=== PATIENT | female | born 1945 | race Caucasian/White ===

== ENCOUNTER 2021-06-17 13:10 | Outpatient (REF) | payer MEDICARE, OTHER, SELFPAY ==
[2021-06-17 14:04] LABS: Hematocrit 44.5 % (37-47); Hemoglobin 14.9 g/dl (12.0-16.0); Mean Corpuscular HGB Conc 33.5 g/dl (31.0-35.0); Mean Corpuscular Volume 92.7 fL (80-98); Mean Platelet Volume 9.8 fL (9.4-12.3); Platelet Count 365 X10*3/uL (160-400); Red Cell Distribution Width 13.3 % (11.0-16.0); White Blood Count 7.6 X10*3/uL (4.8-10.8)
[2021-06-17 14:37] LABS: Alanine Aminotransferase 13 U/L (0-31); Albumin Level 4.5 g/dL (3.5-5.0); Alkaline Phosphatase 93 U/L (39-117); Anion Gap 14 (12-20); Aspartate Amino Transferase 27 U/L (5-31); Bilirubin Total 0.7 mg/dL (0.0-1.0); Blood Urea Nitrogen 12 mg/dL (9-16); Calcium 10.3 mg/dL (8.4-10.2); Carbon Dioxide 28 mmol/L (22-29); Chloride 101 mmol/L (96-108); Cholesterol 194 mg/dL; Estimated Glomerular Filt Rate > 60; Glucose Fasting 91 mg/dL (60-99); HDL Cholesterol 85 mg/dL; LDL Cholesterol Calculated 97 mg/dl; Potassium 5.3 mmol/L (3.3-5.1); Sodium 138 mmol/L (135-145); Total Protein 7.7 g/dL (6.5-8.0); Triglycerides 63 mg/dL
[2021-06-17 14:56] LABS: TSH reflex Free T4 1.54 uIU/mL (0.32-4.0)
[2021-06-17 15:15] LABS: Folate 15.6 ng/mL (> or = 4.0); Vitamin B12 519 pg/mL (200-900)
== END 2021-06-17 13:11 | disposition home or self-care (01) ==
LOC: HO.HMGCLDS 13:10
PROVIDERS: PCP Internal Medicine; Visit Provider Internal Medicine
DX: J42 Unspecified chronic bronchitis (principal); I26.99 Other pulmonary embolism without acute cor pulmonale; E78.2 Mixed hyperlipidemia
CPT/HCPCS: 36415; 80053; 80061; 82306; 82607; 82746; 84443; 85027

== ENCOUNTER 2022-07-01 10:30 | Outpatient (REF) | payer MEDICARE, OTHER, SELFPAY ==
[2022-07-01 11:27] LABS: MANUAL DIFF FLAG NO
[2022-07-01 11:49] LABS: Basophils Absolute Auto 0.1 X10*3/uL (0.0-0.2); Basophils Percent Auto 0.9 % (0-2); Eosinophils Absolute Auto 0.8 X10*3/uL (0.0-0.4); Eosinophils Percent Auto 9.2 % (0-4); Hematocrit 42.5 % (37.0-47.0); Hemoglobin 14.3 g/dl (12.0-16.0); Imm Gran Abs Auto 0.03 X10*3/uL (0.00-0.03); Imm Gran Pct Auto 0.4 % (0.0-0.4); Lymphocytes Absolute Auto 1.9 X10*3/uL (1.2-4.9); Lymphocytes Percent Auto 22.1 % (20-40); Mean Corpuscular HGB Conc 33.6 g/dl (31.0-35.0); Mean Corpuscular Hemoglobin 31.7 pg (27.0-33.0); Mean Corpuscular Volume 94.2 fL (80.0-98.0); Mean Platelet Volume 10.2 fL (9.4-12.3); Monocytes Absolute Auto 0.8 X10*3/uL (0.1-1.2); Monocytes Percent Auto 9.6 % (2-11); Neutrophils Absolute Auto 4.9 x10*3/uL (2.0-8.3); Neutrophils Percent Auto 57.8 % (45-73); Platelet Count 359 X10*3/uL (160-400); Red Blood Count 4.51 X10*6/uL (4.20-5.50); Red Cell Distribution Width 12.9 % (11.0-16.0); White Blood Count 8.5 X10*3/uL (4.8-10.8)
[2022-07-01 13:01] LABS: Alanine Aminotransferase 15 U/L (0-31); Albumin Level 4.3 g/dL (3.5-5.0); Alkaline Phosphatase 112 U/L (39-117); Anion Gap 17 (12-20); Aspartate Amino Transferase 24 U/L (5-31); Bilirubin Total 0.6 mg/dL (0.0-1.0); Blood Urea Nitrogen 10 mg/dL (9-16); Carbon Dioxide 26 mmol/L (22-29); Chloride 97 mmol/L (96-108); Cholesterol 198 mg/dL; Estimated Glomerular Filt Rate > 60; Glucose Fasting 89 mg/dL (60-99); HDL Cholesterol 77 mg/dL; LDL Cholesterol Calculated 101 mg/dl; Potassium 4.9 mmol/L (3.3-5.1); Sodium 135 mmol/L (135-145); Total Protein 7.8 g/dL (6.5-8.0); Triglycerides 100 mg/dL
== END 2022-07-01 10:31 | disposition home or self-care (01) ==
LOC: HO.HMGCLDS 10:30
PROVIDERS: PCP Internal Medicine; Visit Provider Internal Medicine
DX: E78.2 Mixed hyperlipidemia (principal); I10 Essential (primary) hypertension
CPT/HCPCS: 36415; 80053; 80061; 85025

== ENCOUNTER 2022-12-19 10:46 | Outpatient (REF) | payer MEDICARE, OTHER, SELFPAY ==
[2022-12-19 14:05] LABS: MANUAL DIFF FLAG NO
[2022-12-19 14:29] LABS: Basophils Absolute Auto 0.1 X10*3/uL (0.0-0.2); Basophils Percent Auto 0.7 % (0-2); Eosinophils Absolute Auto 0.4 X10*3/uL (0.0-0.4); Eosinophils Percent Auto 4.5 % (0-4); Hematocrit 44.5 % (37.0-47.0); Hemoglobin 14.8 g/dl (12.0-16.0); Imm Gran Abs Auto 0.02 X10*3/uL (0.00-0.03); Imm Gran Pct Auto 0.2 % (0.0-0.4); Lymphocytes Absolute Auto 2.1 X10*3/uL (1.2-4.9); Lymphocytes Percent Auto 25.5 % (20-40); Mean Corpuscular HGB Conc 33.3 g/dl (31.0-35.0); Mean Corpuscular Hemoglobin 31.4 pg (27.0-33.0); Mean Corpuscular Volume 94.5 fL (80.0-98.0); Mean Platelet Volume 10.5 fL (9.4-12.3); Monocytes Percent Auto 12.7 % (2-11); Neutrophils Absolute Auto 4.6 x10*3/uL (2.0-8.3); Neutrophils Percent Auto 56.4 % (45-73); Platelet Count 343 X10*3/uL (160-400); Red Blood Count 4.71 X10*6/uL (4.20-5.50); Red Cell Distribution Width 13.9 % (11.0-16.0); White Blood Count 8.2 X10*3/uL (4.8-10.8)
[2022-12-19 14:50] LABS: Alanine Aminotransferase 15 U/L (0-31); Albumin Level 4.2 g/dL (3.5-5.0); Alkaline Phosphatase 105 U/L (39-117); Anion Gap 13 (12-20); Aspartate Amino Transferase 25 U/L (5-31); Blood Urea Nitrogen 10 mg/dL (9-16); Calcium 9.8 mg/dL (8.4-10.2); Carbon Dioxide 27 mmol/L (22-29); Chloride 99 mmol/L (96-108); Cholesterol 201 mg/dL; Estimated Glomerular Filt Rate > 60; Glucose Fasting 107 mg/dL (60-99); HDL Cholesterol 81 mg/dL; LDL Cholesterol Calculated 107 mg/dl; Sodium 134 mmol/L (135-145); Total Protein 7.4 g/dL (6.5-8.0); Triglycerides 67 mg/dL
[2022-12-19 14:56] LABS: TSH reflex Free T4 2.09 uIU/mL (0.32-4.0); Vitamin D 25-OH Total 32.9 ng/mL (>30)
== END 2022-12-19 10:47 | disposition home or self-care (01) ==
LOC: HO.HMGCLDS 10:46
PROVIDERS: PCP Internal Medicine; Visit Provider Internal Medicine
DX: Z00.00 Encounter for general adult medical examination without abnormal findings (principal); E55.9 Vitamin D deficiency, unspecified; E78.2 Mixed hyperlipidemia; I10 Essential (primary) hypertension
CPT/HCPCS: 36415; 80053; 80061; 82306; 84443; 85025

== ENCOUNTER 2023-01-20 10:19 | Outpatient (REF) | payer MEDICARE, OTHER, SELFPAY ==
[2023-01-20 12:15] LABS: Anion Gap 14 (12-20); Blood Urea Nitrogen 9 mg/dL (9-16); Calcium 10.5 mg/dL (8.4-10.2); Carbon Dioxide 29 mmol/L (22-29); Chloride 100 mmol/L (96-108); Estimated Glomerular Filt Rate > 60; Glucose Random 105 mg/dL (60-115); Potassium 5.2 mmol/L (3.3-5.1); Sodium 138 mmol/L (135-145)
== END 2023-01-20 10:20 | disposition home or self-care (01) ==
LOC: HO.HMGCLDS 10:19
PROVIDERS: PCP Internal Medicine; Visit Provider Internal Medicine
DX: E87.1 Hypo-osmolality and hyponatremia (principal)
CPT/HCPCS: 36415; 80048

== ENCOUNTER 2023-03-06 14:09 | Outpatient (AMB) | payer MEDICARE, OTHER, SELFPAY ==
[2023-03-06 14:10] VITALS: BP 118/76; PULSE 92; O2SAT 96; BMI 32.0
--- NOTE | 2023-03-06 14:10 | MHC.PC.OV ---
Vital Signs 03/06/23 14:10 Height 5 ft 6 in Weight 198 lb BMI 32.0 BP 118/76 Blood Pressure Location Rt brachial Position Sitting Pulse 92 Pulse Source Pulse Oximeter Pulse Oximetry (%) 96 Oxygen Delivery Method Room Air Intake Visit Reasons: 1 Month follow up Intake Note: Pt is here today for 1 month follow up visit. Pt states that she has been feeling dizzy for last 2 weeks. Allergies No Known Allergies Allergy (Verified 03/06/23 14:12) Medication List - Last Reconciled 03/06/23 by Payal Marroquin MD albuterol sulfate 90 mcg/actuation 2 puffs inhalation Q6H PRN amlodipine 5 mg PO DAILY apixaban 5 mg PO BID ascorbic acid (vitamin C) PO clobetasol 0.05% 1 appl topical DAILY escitalopram oxalate 5 mg PO DAILY ketoconazole 2% 1 appl topical BID lidocaine 5% 1 patch topical DAILY lovastatin 20 mg PO DAILY nystatin 1 appl topical BID Trelegy Ellipta 100-62.5-25 mcg (txjomcusclm-lmoknvqqe-tpagnmkv) 1 inh inhalation DAILY 28 days NS Tobacco use date assessed: 03/06/23 Fall risk assessment: No Falls in past year Last assessed Fall Risk: 03/06/23 Dental Screening Dental Screen Date: 03/06/23 Did you have a dental visit in the last 12 months?: Yes Did you have a dental problem in the last 6 months where you did not have access to dental care?: No Was dental information given to patient?: Patient has dentist HPI 1 Month follow up HPI Details Pt c/o 2 week of positional vertigo, no nausea, vomiting, weakness or numbness in extremities. HTN and hyperlipid stable on meds. [facility] Medical History Annual physical exam COPD (chronic obstructive pulmonary disease) HTN (hypertension) IBS (irritable bowel syndrome) Lyme disease Mid-back pain, acute Pulmonary embolism Surgical History History of left knee replacement S/P partial colectomy Family History Father Cancer Mother Myocardial infarct CVD (cardiovascular disease) Social History Housing: House Patient Tobacco Use Status: Former Tobacco user e-Cigarette/Vaping Use: Never Used Current occupational status: retired Cognitive needs: No Hearing needs: No Vision needs: Yes Questionnaire Thrive Questionnaire Date Thrive assessed: 04/08/22 AUDIT C Alcohol Use Questionnaire (AUDIT-C) 1. How often do you have a drink containing alcohol?: 2-3 times a week 2. How many drinks containing alcohol do you have on a typical day when you are drinking?: 1 or 2 3. How often do you have six or more drinks on one occasion?: Never Total Score: 3 CAESAR-7 AMB Questionnaire CAESAR-7 Date CAESAR - 7 assessed: 04/08/22 Source: Developed by Drs. Dany Alvarez, Bobbi Rivera, Maged Hudson and colleagues, with an educational iris from [employer]. Review of Systems Const All systems reviewed & are unremarkable except as noted in HPI and below Reports no additional complaints Eyes Reports no additional complaints ENT Reports no additional complaints Card Reports no additional complaints Resp Reports no additional complaints GI Reports no additional complaints Reports no additional complaints Physical exam (Primary Care) Vital Signs: Last Vital Signs Pulse 92 03/06/23 14:10 BP 118/76 03/06/23 14:10 Pulse Ox 96 03/06/23 14:10 Oxygen Delivery Method Room Air 03/06/23 14:10 BMI result Body Mass Index 32.0 Tobacco/Smoking Status: Tobacco use Status Tobacco use date assessed 03/06/23 03/06/23 14:16 Patient Tobacco Use Status Former Tobacco user 03/06/23 14:16 e-Cigarette/Vaping Use Never Used 03/06/23 14:16 Thrive Assessment: Date of Thrive Assessment Date Thrive assessed 04/08/22 03/06/23 14:16 Const General: no acute distress HENMT Head: Yes normal to inspection Face and sinus: Yes normal facial exam Eyes General: appearance normal, both eyes and all related structures Visual Alba: normal visual alba by confrontation EOM: EOMs intact bilaterally Neck Neck: Yes no lymphadenopathy and Yes supple Resp Effort & Inspection: normal respiratory effort Auscultation: clear to auscultation bilaterally Cardio Rhythm: regular rhythm Heart sounds: S1 normal heart sound present and S2 normal heart sound present GI Palpation (GI): Soft to palpation Neuro Cranial nerves: Yes CN's II-XII intact bilaterally Gait exam (Neuro): Normal gait present Motor exam (neuro): 5/5 motor strength present throughout Romberg Test: Negative Extrem General: Yes no clubbing, cyanosis or edema Assessment and Plan Assessment & Plan (1) Vertigo: Code(s): R42 - Dizziness and giddiness Plan: Try meclizine and supportive care discussed with the patient. If the symptoms persist she will be referred to vestibular therapy (2) HTN (hypertension): Code(s): I10 - Essential (primary) hypertension Plan: Continue current medications Medications: New meclizine 25 mg PO BID PRN 30 tabs 0RF dizziness Changed From Trelegy Ellipta 100-62.5-25 mcg (rpryubjkgfz-ckhyopdwy-eydzexez) 1 inh inhalation DAILY 28 days 28 ea 3RF NS To Trelegy Ellipta 100-62.5-25 mcg (ybvakjegxpp-eiecmgpsi-hclhmxwv) 1 inh inhalation DAILY 90 ea 3RF NS Coding Level of Care Code Est Pt Level 3 (71051) Diagnoses Vertigo R42 HTN (hypertension) I10
== END 2023-03-06 14:47 | disposition home or self-care (01) ==
PROVIDERS: Visit Provider Internal Medicine
DX: R42 Dizziness and giddiness (principal); I10 Essential (primary) hypertension
CPT/HCPCS: 99213

== ENCOUNTER 2024-02-21 12:27 | Outpatient (AMB) | payer MEDICARE, OTHER, SELFPAY ==
[2024-02-21 13:18] VITALS: BP 122/78; PULSE 81; O2SAT 96; BMI 30.5
--- NOTE | 2024-02-21 13:18 | A.OFFPC_ITS ---
Vital Signs 02/21/24 13:18 Height 5 ft 6 in Weight 189 lb BMI 30.5 BP 122/78 Blood Pressure Location Rt brachial Position Sitting Pulse 81 Pulse Source Pulse Oximeter Pulse Oximetry (%) 96 Oxygen Delivery Method Room Air Intake Visit Reasons: Annual PE/GIC covers PE Intake Note: Pt is here today for PE. Allergies No Known Allergies Allergy (Verified 02/21/24 13:21) Medication List - Last Reconciled 02/21/24 by Payal Marroquin MD albuterol sulfate 90 mcg/actuation 2 puffs inhalation Q6H PRN amlodipine 5 mg PO DAILY apixaban 5 mg PO BID ascorbic acid (vitamin C) PO escitalopram oxalate 5 mg PO DAILY ketoconazole 2% 1 appl topical BID lovastatin 20 mg PO DAILY nystatin 1 appl topical BID triamcinolone acetonide 0.1% 1 appl topical BID-TID umeclidinium-vilanterol 62.5-25 mcg/actuation (Anoro Ellipta) 1 ea inhalation DAILY vit S-mzsobvq-zpem-rutin-hb196 646-57-48-40 mg (Bioflex) tabs PO Tobacco use date assessed: 02/21/24 Fall risk assessment: No Falls in past year Last assessed Fall Risk: 02/21/24 Dental Screening Dental Screen Date: 02/21/24 Did you have a dental visit in the last 12 months?: Yes Did you have a dental problem in the last 6 months where you did not have access to dental care?: No Was dental information given to patient?: Patient has dentist HPI Annual PE/GIC covers PE HPI Details Pt presents for PE. Pt will have L shoulder replacement for not healed left humeral fracture in March [facility] Medical History Chronic bronchitis Annual physical exam Mid-back pain, acute Pulmonary embolism IBS (irritable bowel syndrome) COPD (chronic obstructive pulmonary disease) Lyme disease HTN (hypertension) Surgical History History of left knee replacement S/P partial colectomy Family History Father Cancer Mother Myocardial infarct CVD (cardiovascular disease) Social History Housing: House Patient Tobacco Use Status: Former Tobacco user e-Cigarette/Vaping Use: Never Used service: No Current occupational status: retired Cognitive needs: No Hearing needs: No Vision needs: Yes Questionnaire PHQ-9 Over the last 2 weeks, how often have you been bothered by any of the following problems? 1. Little interest or pleasure in doing things: not at all 2. Feeling down, depressed, or hopeless: not at all 3. Trouble falling or staying asleep, or sleeping too much: not at all 4. Feeling tired or having little energy: several days 5. Poor appetite or overeating: several days 6. Feeling bad about yourself - or that you are a failure or have let yourself or your family down: several days 7. Trouble concentrating on things, such as reading the newspaper or watching television: not at all 8. Moving or speaking so slowly that other people could have noticed. Or the opposite - being so fidgety or restless that you have been moving around a lot more than usual: not at all 9. Thoughts that you would be better off or of hurting yourself in some way: not at all Total score: 3 Depression Screening Interpretation: Negative Depression Screening Done: Yes Source: Developed by Drs. Dany Alvarez, Bobbi Rivera, Maged Hudson and colleagues, with an educational iris from [employer]. Thrive Questionnaire Date Thrive assessed: 02/21/24 I am a: Patient What is your living situation today?: I have a steady place to live Within the past 12 months, did the food you bought not last and you didn't have the money to get more?: Never true Within the past 12 months, did you worry whether your food would run out before you got money to buy more?: Never true Do you have trouble paying for medicines?: No Do you have trouble getting transportation to medical appointments?: No Do you have trouble paying your heating and electricity bill?: No Do you have trouble taking care of your child, family member or friend?: No Do you have trouble with day-to-day activities such as bathing, preparing meals, shopping, managing finances, etc.?: No Are you currently unemployed and looking for a job?: No Are you interested in more education?: No Please select the resources that you would like help with: None THRIVE Score: 0 AUDIT C Alcohol Use Questionnaire (AUDIT-C) 1. How often do you have a drink containing alcohol?: 2-3 times a week 2. How many drinks containing alcohol do you have on a typical day when you are drinking?: 1 or 2 3. How often do you have six or more drinks on one occasion?: Never Total Score: 3 CAESAR-7 AMB Questionnaire CAESAR-7 Date CAESAR - 7 assessed: 02/21/24 Feeling nervous, anxious, or on edge: 0 = Not at all Not being able to stop or control worryin = Not at all Worrying too much about different things: 0 = Not at all Trouble relaxin = Not at all Being so restless that it is hard to sit still: 0 = Not at all Becoming easily annoyed or irritable: 0 = Not at all Feeling afraid as if something awful might happen: 0 = Not at all Total CAESAR-7 score (0-4 normal; 5-9 mild; 10-14 moderate; 15-21 severe): 0 Source: Developed by Drs. Dany Alvarez, Bobbi Rivera, Maged Hudson and colleagues, with an educational iris from [employer]. Review of Systems Const All systems reviewed & are unremarkable except as noted in HPI and below Reports no additional complaints Eyes Reports no additional complaints ENT Reports no additional complaints Card Reports no additional complaints Resp Reports no additional complaints GI Reports no additional complaints Reports no additional complaints Physical exam (Primary Care) Vital Signs: Last Vital Signs Pulse 81 02/21/24 13:18 BP 122/78 02/21/24 13:18 Pulse Ox 96 02/21/24 13:18 Oxygen Delivery Method Room Air 02/21/24 13:18 BMI result Body Mass Index 30.5 Tobacco/Smoking Status: Tobacco use Status Tobacco use date assessed 02/21/24 02/21/24 13:30 Patient Tobacco Use Status Former Tobacco user 02/21/24 13:18 e-Cigarette/Vaping Use Never Used 02/21/24 13:18 PHQ-9: PHQ-9 Score PHQ-9: Total score 3 02/21/24 13:34 Depression Screening Interpretation: Negative Thrive Assessment: Date of Thrive Assessment Date Thrive assessed 02/21/24 02/21/24 13:34 Const General: no acute distress HENMT Head: Yes normal to inspection Ears: hearing grossly normal bilaterally General nose exam: Normal external nose present Mouth: Normal oral and palatal mucosa present Eyes General: appearance normal, both eyes and all related structures Neck Neck: Yes no lymphadenopathy and Yes supple Resp Effort & Inspection: normal respiratory effort Auscultation: clear to auscultation bilaterally Cardio Rhythm: regular rhythm Heart sounds: S1 normal heart sound present and S2 normal heart sound present GI Inspection: Yes normal to inspection Palpation (GI): Soft to palpation Percussion: Yes normal to percussion Auscultation: normal bowel sounds Assessment and Plan Assessment & Plan (1) Knee pain, left: Comment: Status post arthroplasty 2017 Code(s): M25.562 - Pain in left knee Plan: Check knee x-ray (2) HTN (hypertension): Code(s): I10 - Essential (primary) hypertension Plan: Continue current medications (3) 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 Garcia (6) Annual physical exam: Code(s): Z00.00 - Encounter for general adult medical examination without abnormal findings Plan: Well-balanced diet regular physical activity discussed with the patient Orders: Orders Complete Blood Count Auto Diff Today I10 - Essential (primary) hypertension, I26.99 - Other pulmonary embolism without acute cor pulmonale Lipid Panel Today I10 - Essential (primary) hypertension, I26.99 - Other pulmonary embolism without acute cor pulmonale XR knee LT 2V Today I10 - Essential (primary) hypertension, I26.99 - Other pulmonary embolism without acute cor pulmonale, M25.562 - Pain in left knee Comprehensive [place]. Panel Fast Today I10 - Essential (primary) hypertension, I26.99 - Other pulmonary embolism without acute cor pulmonale TSH reflex Free T4 Today I10 - Essential (primary) hypertension, I26.99 - Other pulmonary embolism without acute cor pulmonale Coding Level of Care Code Est Pt Prev Care >65y(04531) Diagnoses Knee pain, left M25.562 HTN (hypertension) I10 Pulmonary embolism I26.99 COPD (chronic obstructive pulmonary disease) J44.9 Shoulder fracture, left S42.92XA Annual physical exam Z00.00
== END 2024-02-21 13:54 | disposition home or self-care (01) ==
PROVIDERS: Visit Provider Internal Medicine
DX: Z00.00 Encounter for general adult medical examination without abnormal findings (principal); I26.99 Other pulmonary embolism without acute cor pulmonale; J44.9 Chronic obstructive pulmonary disease, unspecified; M25.562 Pain in left knee; I10 Essential (primary) hypertension; S42.92XA Fracture of left shoulder girdle, part unspecified, initial encounter for closed fracture
CPT/HCPCS: 99397

== ENCOUNTER 2024-02-21 13:55 | Outpatient (REF) | payer MEDICARE, OTHER, SELFPAY ==
--- NOTE | ~2024-02-21 | XR_ITS ---
EXAMINATION: XR KNEE, LEFT CLINICAL INFORMATION: Pain in left knee COMPARISON: None available. TECHNIQUE: Two views of the left knee. FINDINGS: Diffuse demineralization. Left total knee arthroplasty. Hardware appears intact. Alignment maintained. Trace joint effusion. Focal demineralization in the lateral tibial plateau subjacent to the lateral flange of the prosthesis. XR/XR knee LT 2V IMPRESSION: Left total knee arthroplasty. Hardware appears intact.
[2024-02-21 16:01] LABS: MANUAL DIFF FLAG NO
[2024-02-21 16:05] LABS: Basophils Absolute Auto 0.1 X10*3/uL (0.0-0.2); Basophils Percent Auto 0.5 % (0-2); Eosinophils Absolute Auto 0.2 X10*3/uL (0.0-0.4); Eosinophils Percent Auto 2.3 % (0-4); Hematocrit 44.8 % (37.0-47.0); Hemoglobin 14.9 g/dl (12.0-16.0); Imm Gran Abs Auto 0.04 X10*3/uL (0.00-0.03); Imm Gran Pct Auto 0.4 % (0.0-0.4); Lymphocytes Absolute Auto 1.4 X10*3/uL (1.2-4.9); Lymphocytes Percent Auto 14.6 % (20-40); Mean Corpuscular HGB Conc 33.3 g/dl (31.0-35.0); Mean Corpuscular Volume 96.3 fL (80.0-98.0); Mean Platelet Volume 10.8 fL (9.4-12.3); Monocytes Absolute Auto 0.9 X10*3/uL (0.1-1.2); Monocytes Percent Auto 9.3 % (2-11); Neutrophils Absolute Auto 7.2 x10*3/uL (2.0-8.3); Neutrophils Percent Auto 72.9 % (45-73); Platelet Count 329 X10*3/uL (160-400); Red Blood Count 4.65 X10*6/uL (4.20-5.50); Red Cell Distribution Width 14.3 % (11.0-16.0); White Blood Count 9.8 X10*3/uL (4.8-10.8)
[2024-02-21 16:41] LABS: Alanine Aminotransferase 14 U/L (0-31); Albumin Level 4.3 g/dL (3.5-5.0); Alkaline Phosphatase 128 U/L (39-117); Anion Gap 14 (12-20); Aspartate Amino Transferase 22 U/L (5-31); Bilirubin Total 0.8 mg/dL (0.0-1.0); Blood Urea Nitrogen 12 mg/dL (9-16); Calcium 10.1 mg/dL (8.4-10.2); Carbon Dioxide 27 mmol/L (22-29); Chloride 100 mmol/L (96-108); Cholesterol 209 mg/dL (<200); Estimated Glomerular Filt Rate > 60; Glucose Fasting 94 mg/dL (60-99); HDL Cholesterol 94 mg/dL (>40); LDL Cholesterol Calculated 107 mg/dL (<100); Potassium 3.9 mmol/L (3.3-5.1); Sodium 137 mmol/L (135-145); Total Protein 7.9 g/dL (6.5-8.0); Triglycerides 43 mg/dL (<150)
[2024-02-21 16:51] LABS: TSH reflex Free T4 1.61 uIU/mL (0.32-4.0)
== END 2024-02-21 13:56 | disposition home or self-care (01) ==
LOC: HO.HMGCX 13:55
PROVIDERS: PCP Internal Medicine; Visit Provider Internal Medicine
DX: M25.562 Pain in left knee (principal); I10 Essential (primary) hypertension; I26.99 Other pulmonary embolism without acute cor pulmonale
CPT/HCPCS: 36415; 73560; 80053; 80061; 84443; 85025

== ENCOUNTER 2024-04-03 11:40 | Outpatient (AMB) | payer MEDICARE, OTHER, SELFPAY ==
[2024-04-03 11:42] VITALS: BP 120/76; PULSE 91; O2SAT 97; BMI 31.0
--- NOTE | 2024-04-03 11:42 | A.OFFPC_ITS ---
Vital Signs 04/03/24 11:42 Height 5 ft 6 in Weight 192 lb BMI 31.0 BP 120/76 Blood Pressure Location Rt brachial Position Sitting Pulse 91 Pulse Source Pulse Oximeter Pulse Oximetry (%) 97 Oxygen Delivery Method Room Air Intake Visit Reasons: Pre op Total L shoulder replacement 04/23/24 Intake Note: Pt is here today for pre op visit. Pt is having L shoulder replacement surgery on 04/23/[address] Garcia. Allergies No Known Allergies Allergy (Verified 04/03/24 11:54) Medication List - Last Reconciled 04/03/24 by Payal Marroquin MD albuterol sulfate 90 mcg/actuation 2 puffs inhalation Q6H PRN amlodipine 5 mg PO DAILY apixaban 5 mg PO BID ascorbic acid (vitamin C) PO escitalopram oxalate 5 mg PO DAILY ketoconazole 2% 1 appl topical BID lovastatin 20 mg PO DAILY nystatin 1 appl topical BID Trelegy Ellipta 100-62.5-25 mcg (ugaemwavije-iamyaifhu-jognegmj) 1 inh in halation DAILY NS triamcinolone acetonide 0.1% 1 appl topical BID-TID vit O-uzjzyza-cans-rutin-hb196 448-80-73-40 mg (Bioflex) tabs PO Tobacco use date assessed: 04/03/24 Dental Screening Dental Screen Date: 02/21/24 HPI Pre op Total L shoulder replacement 04/23/24 HPI Details Patient presents for a preop visit for right total shoulder repl acement. She denies complaints. COPD has been stable on Trelegy and patient has been taking amlodipine for hypertension. She has a history of episodes of AFib many years ago and has been on Eliquis for history of recurrent DVT and PE. [facility] Medical History Chronic bronchitis Annual physical exam Mid-back pain, acute Pulmonary embolism IBS (irritable bowel syndrome) COPD (chronic obstructive pulmonary disease) Lyme disease HTN (hypertension) Surgical History History of left knee replacement S/P partial colectomy Family History Father Cancer Mother Myocardial infarct CVD (cardiovascular disease) Social History Housing: House Patient Tobacco Use Status: Former Tobacco user e-Cigarette/Vaping Use: Never Used service: No Current occupational status: retired Cognitive needs: No Hearing needs: No Vision needs: Yes Questionnaire Thrive Questionnaire Date Thrive assessed: 02/21/24 AUDIT C Alcohol Use Questionnaire (AUDIT-C) 1. How often do you have a drink containing alcohol?: Never 3. How often do you have six or more drinks on one occasion?: Never Total Score: 0 CAESAR-7 AMB Questionnaire CAESAR-7 Date CAESAR - 7 assessed: 02/21/24 Source: Developed by Drs. Dany Alvarez, Bobbi Rivera, Maged Hudson and colleagues, with an educational iris from [employer]. Review of Systems Const All systems reviewed & are unremarkable except as noted in HPI and below Card Reports no additional complaints Resp Reports no additional complaints GI Reports no additional complaints Reports no additional complaints Physical exam (Primary Care) Vital Signs: Last Vital Signs Pulse 91 04/03/24 11:42 BP 120/76 04/03/24 11:42 Pulse Ox 97 04/03/24 11:42 Oxygen Delivery Method Room Air 04/03/24 11:42 BMI result Body Mass Index 31.0 Tobacco/Smoking Status: Tobacco use Status Tobacco use date assessed 04/03/24 04/03/24 11:56 Patient Tobacco Use Status Former Tobacco user 04/03/24 11:43 e-Cigarette/Vaping Use Never Used 04/03/24 11:43 Thrive Assessment: Date of Thrive Assessment Date Thrive assessed 02/21/24 04/03/24 11:43 Const General: no acute distress HENMT Head: Yes normal to inspection Face and sinus: Yes normal facial exam Throat: Yes posterior oropharynx normal Neck Neck: Yes supple Resp Effort & Inspection: normal respiratory effort Auscultation: crackles (at bases) and diminished lung sounds Cardio Rhythm: abnormal rhythm irregularly irregular Heart sounds: S1 normal heart sound present and S2 normal heart sound present GI Inspection: Yes normal to inspection Palpation (GI): Soft to palpation Percussion: Yes normal to percussion Assessment and Plan Assessment & Plan (1) A-fib: Code(s): I48.91 - Unspecified atrial fibrillation Plan: EKG showed AFib with a heart rate of [address]-T changes. Echocardiogram in 3 the Holter will be obtained. Metoprolol 25 mg daily will be started. Patient will follow-up after the test to discuss the results (2) COPD (chronic obstructive pulmonary disease): Code(s): J44.9 - Chronic obstructive pulmonary disease, unspecified Plan: Continue Trelegy (3) Mixed hyperlipidemia: Code(s): E78.2 - Mixed hyperlipidemia Plan: Continue statin (4) Shoulder fracture, left: Comment: 01/16 s/p fall Code(s): S42.92XA - Fracture of left shoulder girdle, part unspecified, initial encounter for closed fracture Plan: Clearance will be delay after echocardiogram and Holter results are available. Orders: Orders CA echo transthoracic complete Today I48.91 - Unspecified atrial fibrillation AMB EKG-In Office Today I10 - Essential (primary) hypertension, I48.91 - Unspecified atrial fibrillation ECG 3 day holter monitor Today I48.91 - Unspecified atrial fibrillation XR chest 1V Today I48.91 - Unspecified atrial fibrillation, J44.9 - Chronic obstructive pulmonary disease, unspecified Medications: New Trelegy Ellipta 100-62.5-25 mcg (vjesxsjjbzf-aguczcwvr-snlkzgco) 1 inh inhala tion DAILY 60 ea 0RF NS metoprolol succinate ER 25 mg PO DAILY 90 tabs 0RF Coding Level of Care Code Est Pt Level 4 (59303) Diagnoses A-fib I48.91 COPD (chronic obstructive pulmonary disease) J44.9 Mixed hyperlipidemia E78.2 Shoulder fracture, left S42.92XA
== END 2024-04-03 13:15 | disposition home or self-care (01) ==
PROVIDERS: PCP Internal Medicine; Visit Provider Internal Medicine
DX: I48.91 Unspecified atrial fibrillation (principal); J44.9 Chronic obstructive pulmonary disease, unspecified; E78.2 Mixed hyperlipidemia; S42.92XA Fracture of left shoulder girdle, part unspecified, initial encounter for closed fracture
CPT/HCPCS: 99214

== ENCOUNTER 2024-04-03 13:13 | Outpatient (REF) | payer MEDICARE, OTHER, SELFPAY ==
--- NOTE | ~2024-04-03 | XR_ITS ---
EXAMINATION: XR CHEST CLINICAL INFORMATION: COPD. COMPARISON: None available. TECHNIQUE: Frontal view of the chest was obtained. FINDINGS: The heart and mediastinum are unremarkable. There is atherosclerotic calcification and tortuosity of the thoracic aorta. There is pulmonary vascular congestion, without overt pulmonary edema. Mild elevation is seen of the right hemidiaphragm. There is biapical pleural thickening. No infiltrate, effusion or pneumothorax is seen. There is no acute osseous abnormality. There are degenerative changes of the shoulders. XR/XR chest 1V IMPRESSION: 1. No focal infiltrate is seen. 2. There is mild pulmonary vascular congestion, without overt pulmonary edema. 3. There is mild elevation of the right hemidiaphragm. Electronically signed by: Benji Yates MD 05/01/2024 10:55 AM EDT
== END 2024-04-03 13:14 | disposition home or self-care (01) ==
LOC: HO.HMGCX 13:13
PROVIDERS: PCP Internal Medicine; Visit Provider Internal Medicine
DX: J44.9 Chronic obstructive pulmonary disease, unspecified (principal); I48.91 Unspecified atrial fibrillation
CPT/HCPCS: 71045

== ENCOUNTER → 2024-04-09 08:56 | Outpatient (REF) | payer MEDICARE, OTHER, SELFPAY ==
--- NOTE | 2024-04-09 09:01 | CA_ITS ---
Transthoracic Echocardiogram Patient (Last, First, Middle): Krissy Mclain, Gender: Female Date of : 1945 Age: 79 Procedure Date: 04/09/2024 Procedure Type: Transthoracic Echocardiogram Location: OP Height: 167. cm Weight: 86.18 kg BSA: 1.95 m2 Heart Rate: 71 bpm BP: 145 / 80 mmHg Supplier Quality Manager: ARMANDO Referring MD: Payal Marroquin MD Symptoms: I48.91 - Unspecified atrial fibrillation Study Quality: Fair ECG Rhythm: Atrial Fibrillation Conclusions: - The left ventricular systolic function is normal. The calculated ejection fraction is 70% by biplane method. - The left atrium is moderately dilated. - No obvious valvular pathology seen on this study. Findings Left Ventricle Normal left ventricular cavity size. There is normal left ventricular wall thickness. The left ventricular systolic function is normal. The calculated ejection fraction is 70% by biplane method. There is no evidence of regional wall motion abnormalities. Diastolic function is indeterminate on the basis of available data. Right Ventricle Mildly increased right ventricular cavity size. There is normal right ventricular systolic function. Atria The left atrium is moderately dilated. The right atrium is normal in size. Aortic Valve There is a normal trileaflet aortic valve. There is mild calcification of the aortic valve. There is no aortic valve stenosis. There is trace (trivial) aortic valve regurgitation. Mitral Valve There is mild mitral annular calcification. There is mild mitral valve regurgitation. There is no mitral valve stenosis. Pulmonic Valve The pulmonic valve is likely normal. There is trace pulmonic valve regurgitation. Tricuspid Valve There is mild tricuspid valve regurgitation. There is no evidence of pulmonary hypertension. Great Vessels The asc aorta is normal in size. Venous The inferior vena cava is normal in size and collapses greater than 50% with inspiration. Pericardium/Pleural There is no evidence of pericardial effusion. Prior Study Comparison No prior study available for comparison. Recommendations, Care & Conclusions No obvious valvular pathology seen on this study. Measurements 2D Linear Measurements IVSd: 0.95 0.6-0.9/0.6-1.0 cm LVIDd: 4.33 3.9-5.3/4.2-5.9 cm LVIDd Index: 2.22 2.4-3.2/2.2-3.1 cm/m2 LVIDs: 2.60 2.0-3.6 cm LVPWd: 0.94 0.7-1.1 cm LA Diam: 4.20 2.7-3.8/3.0-4.0 cm LAIDs Index: 2.15 1.5-2.3 cm/m2 LV Mass: 165.11 67-162/88-224 g LV Mass Index: 84.67 43-95/49-115 g/m2 LVOT Diam: 1.90 3.0+(-)1.3 cm 2D Systolic Function EF 4C: 66.60 >55% EF 2C: 70.30 >55% EF BiP: 69.50 >55% Mitral Valve MV Pk E: 1.30 MV Decel Time: 185.00 E'Lateral: 12.00 E'Medial: 9.89 E/E' Med: 13.10 E/E' Lat: 10.80 PHT: 54.00 MVA PHT: 4.07 Decel Lee: 7.02 MR Vol - PW Dopp: 14.49 MR VTI: 2.07 MR ERO: 7.00 MR Alias Rolan: 0.39 MR RAD: 0.40 Aortic Valve AoV Pk Rolan: 1.27 AoV Mn Rolan: 0.92 AoV VTI: 0.28 AoV Pk Grad: 6.00 Aov Mn Grad: 4.00 HOMERO Cont.VTI: 2.06 LVOT LVOT Pk Rolan: 0.95 LVOT Mn Rolan: 0.58 LVOT VTI: 0.20 LVOT Pk Grad: 4.00 LVOT Mn Grad: 2.00 LVOT Diam: 1.90 LVOT Area: 2.84 Diastolic Function MV Pk E: 1.30 E'Medial: 9.89 E/E' Med: 13.10 E' Laterial: 12.00 E/E' Lat: 10.80 Right Ventricle TAPSE (mm): 19.10 TVS' Rolan: 10.00 Tricuspid Valve TR Pk Rolan: 2.29 TR Pk Grad: 21.00 RA Press: 3.00 RVSP: 24.00 Great Vessels Aorta Sinus of Valsalva: 3.00 2.0-3.5 cm Ao Asc: 3.70 2.1-3.4 cm Pulmonary Valve PV Pk Rolan: 0.89 Peak PV Grad: 3.00 Updated in Other Vendor System with Status of Final Ras Michel MD electronically signed on 04/10/2024 12:15:26 PM with status of Final
--- NOTE | 2024-04-09 09:01 | HM_ITS ---
* Total monitoring time 3 days. * Underlying rhythm is atrial fibrillation; average ventricular rate 78/Min. * Mostly well controlled atrial fibrillation; rapid ventricular rates about 1% of the time. * Rare ventricular ectopy. * No significant pauses or AV blocks. * No patient markers or diary events. MTDD
== END ==
LOC: HO.CARD 08:56
PROVIDERS: PCP Internal Medicine; Visit Provider Internal Medicine
DX: I48.91 Unspecified atrial fibrillation (principal)
CPT/HCPCS: 93242; 93306

== ENCOUNTER → 2024-04-09 09:01 | Outpatient (BNV) | payer MEDICARE, OTHER, SELFPAY | PROVIDERS: PCP Internal Medicine; Visit Provider Internal Medicine | DX: I48.91 Unspecified atrial fibrillation (principal) | CPT/HCPCS: 93244; 93306 ==

== ENCOUNTER 2024-05-30 10:30 | Outpatient (AMB) | payer MEDICARE, OTHER, SELFPAY ==
[2024-05-30 10:35] VITALS: BP 118/74; PULSE 89; O2SAT 97; BMI 29.7
--- NOTE | 2024-05-30 10:35 | A.OFFPC_ITS ---
Vital Signs 05/30/24 10:35 Height 5 ft 6 in Weight 184 lb BMI 29.7 BP 118/74 Blood Pressure Location Rt brachial Position Sitting Pulse 89 Pulse Source Pulse Oximeter Pulse Oximetry (%) 97 Oxygen Delivery Method Room Air Intake Visit Reasons: HFD shoulder Intake Note: Pt is here today for Hospital follow up visit. Allergies No Known Allergies Allergy (Verified 05/30/24 10:56) Medication List - Last Reconciled 05/30/24 by Payal Marroquin MD albuterol sulfate 90 mcg/actuation 2 puffs inhalation Q6H PRN amlodipine 5 mg PO DAILY apixaban 5 mg PO BID ascorbic acid (vitamin C) PO escitalopram oxalate 5 mg PO DAILY ketoconazole 2% 1 appl topical BID lovastatin 20 mg PO DAILY metoprolol succinate ER 25 mg PO DAILY nystatin 1 appl topical BID Trelegy Ellipta 100-62.5-25 mcg (wdnsvbyuxqj-rwfdgchdt-mtwgukcx) 1 inh inhalation DAILY NS triamcinolone acetonide 0.1% 1 appl topical BID-TID vit B-puhqtdd-sasf-rutin-hb196 345-03-84-40 mg (Bioflex) tabs PO Tobacco use date assessed: 05/30/24 Dental Screening Dental Screen Date: 02/21/24 HPI HFD shoulder HPI Details Patient presents for the follow-up. She underwent left shoulder total replacement and tolerated procedure well. She will be starting physical therapy. Hypertension hyperlipidemia COPD paroxysmal AFib are stable on current medications [facility] Medical History Chronic bronchitis Annual physical exam Mid-back pain, acute Pulmonary embolism IBS (irritable bowel syndrome) COPD (chronic obstructive pulmonary disease) Lyme disease HTN (hypertension) Surgical History (Updated 05/30/24 @ 11:44 by Payal Marroquin MD) History of shoulder surgery History of left knee replacement S/P partial colectomy Family History Father Cancer Mother Myocardial infarct CVD (cardiovascular disease) Social History Housing: House Patient Tobacco Use Status: Former Tobacco user e-Cigarette/Vaping Use: Never Used service: No Current occupational status: retired Cognitive needs: No Hearing needs: No Vision needs: Yes Questionnaire Thrive Questionnaire Date Thrive assessed: 02/21/24 CAESAR-7 AMB Questionnaire CAESAR-7 Date CAESAR - 7 assessed: 02/21/24 Source: Developed by Drs. Dany Alvarez, Bobbi Rivera, Maged Hudson and colleagues, with an educational iris from [employer]. Review of Systems Const All systems reviewed & are unremarkable except as noted in HPI and below Eyes Reports no additional complaints ENT Reports no additional complaints Card Reports no additional complaints Resp Reports no additional complaints GI Reports no additional complaints Reports no additional complaints Physical exam (Primary Care) Vital Signs: Last Vital Signs Pulse 89 05/30/24 10:35 BP 118/74 05/30/24 10:35 Pulse Ox 97 05/30/24 10:35 Oxygen Delivery Method Room Air 05/30/24 10:35 BMI result Body Mass Index 29.7 Tobacco/Smoking Status: Tobacco use Status Tobacco use date assessed 05/30/24 05/30/24 10:58 Patient Tobacco Use Status Former Tobacco user 05/30/24 10:35 e-Cigarette/Vaping Use Never Used 05/30/24 10:35 Thrive Assessment: Date of Thrive Assessment Date Thrive assessed 02/21/24 05/30/24 10:35 Const General: no acute distress HENMT Head: Yes normal to inspection Neck Neck: Yes supple Resp Effort & Inspection: normal respiratory effort Auscultation: clear to auscultation bilaterally Cardio Rhythm: regular rhythm Heart sounds: S1 normal heart sound present and S2 normal heart sound present Coding Level of Care Code Est Pt Level 4 (58263) Diagnoses A-fib I48.91 COPD (chronic obstructive pulmonary disease) J44.9 HTN (hypertension) I10 History of left shoulder replacement Z96.612 Assessment & Plan Assessment & Plan (1) A-fib: Code(s): I48.91 - Unspecified atrial fibrillation Category: Medical Plan: Continue metoprolol and Eliquis (2) COPD (chronic obstructive pulmonary disease): Code(s): J44.9 - Chronic obstructive pulmonary disease, unspecified Category: Medical Plan: Continue Trelegy (3) HTN (hypertension): Code(s): I10 - Essential (primary) hypertension Category: Medical Plan: Continue current medications (4) History of left shoulder replacement: Comment: 04/[address] Garcia Code(s): Z96.612 - Presence of left artificial shoulder joint Category: Medical Plan: Follow-up with ortho Medications: Refilled apixaban 5 mg PO BID 180 tabs 3RF escitalopram oxalate 5 mg PO DAILY 90 tabs 3RF amlodipine 5 mg PO DAILY 90 tabs 3RF lovastatin 20 mg PO DAILY 90 tabs 3RF E78.2 - Mixed hyperlipidemia metoprolol succinate ER 25 mg PO DAILY 90 tabs 3RF Trelegy Ellipta 100-62.5-25 mcg (smicmoarnva-cztenjxxt-bjuopbcn) 1 inh inhalation DAILY 180 ea 5RF NS
== END 2024-05-30 11:44 | disposition home or self-care (01) ==
PROVIDERS: PCP Internal Medicine; Visit Provider Internal Medicine
DX: I48.91 Unspecified atrial fibrillation (principal); J44.9 Chronic obstructive pulmonary disease, unspecified; I10 Essential (primary) hypertension; Z96.612 Presence of left artificial shoulder joint

== ENCOUNTER → 2024-05-30 10:30 | Outpatient (BNVA) | payer MEDICARE, OTHER, SELFPAY | PROVIDERS: PCP Internal Medicine; Visit Provider Internal Medicine | DX: I48.91 Unspecified atrial fibrillation (principal); J44.9 Chronic obstructive pulmonary disease, unspecified; I10 Essential (primary) hypertension; Z96.612 Presence of left artificial shoulder joint | CPT/HCPCS: 99212 ==

== ENCOUNTER 2024-08-14 12:41 | Outpatient (AMB) | payer MEDICARE, OTHER, SELFPAY ==
--- OUTSIDE RECORDS SUMMARY | 2024-08-14 12:43 | XMS_ITS | Clinical Summary ---
Author Organization [facility] Address [address] [place] [address] Phone Care Team Providers Care Service Desk Lead Name Role Phone MD Cara, Payal Primary Care Provider [phone] [facility] Unavailable [phone] Reason for Visit and Chief Complaint Established Patient Plan of Treatment 1. Continue with physical therapy for aggressive range of motion left shoulder. 2. Referred to Dr. Turcios to discuss possible surgical options - Last Documented On 04/25/2022 10:46AM ; [facility] Pending Tests Order Diagnosis Results Due Ordering Eryn king Follow Up - Appointment PRN Unsp phy sl fx upr end humer, l arm, subs for fx w routn heal 04/25/22 Kg Cedeño MD Last Documented On 2 10:46AM ; [facility] Assessments Includes: Assessments from this encounter No Assessments Recorded Medical Equipment - Implanted Devices Includes: Current Devices No Medical Equipment Recorded Medications Includes: Medications discussed during this encounter and other current Medications Current Medications (continue as prescribed) Oxycodone Oral Tablet 01/31/2022 Provider: Diagnosis: Last Documented On 2 8:49AM By Art Carpio ; [facility] Tylenol Oral Tablet 01/31/2022 Provider: Diagnosis: Last Documented On 2 8:49AM By Art Carpio ; [facility] [place] Medications Administered Includes: Administered Medications from this encounter No Administered Medications Recorded Results Includes: Results discussed during this encounter No Results Recorded For Specified Dates History of Present Illness Includes: History of Present Illness from this encounter HPI The patient is a 77-year-old female. She injured her left shoulder on 01/01/2022. She sustained a proximal left humerus fracture. A recent MRI of the left shoulder was obtained which showed some tendinopathy but no tear of the rotator cuff. She is here today for follow-up. Social History No Social History Recorded - Smoking Status Unknown Medical History Includes: Medical History addressed during this encounter No Medical History Recorded Family History Includes: Family History addressed during this encounter No Family History Recorded Review of Systems Includes: Review of Systems from this encounter 1. Nearly 4 months status post proximal left humerus fracture. 2. Recent MRI showed no rotator cuff tear. Mental Status Includes: Mental Status from this encounter No Mental Status Recorded Functional Status Includes: Functional Status from this encounter No Functional Status Recorded Physical Exam Includes: Physical Exam from this encounter Encounters Encounter Provider Location Date Check-In Time Check-Out Time Diagnosis Established Patient Kg Cedeño MD [facility] 04/25/20 22 10:00AM 10:44AM Insurance Includes: Active Insurance Policies Plan Name Member ID Group # Subscriber Relationship Effect guido Dates 1 - Medicare Part B [facility] [id number] VIV Barraza 2 - [facility] [id number] VIV Barraza Clinical Notes Includes: Clinical Notes from this encounter No Clinical Notes Recorded
--- OUTSIDE RECORDS SUMMARY | 2024-08-14 12:43 | XMS_ITS | Clinical Summary ---
Author Organization [facility] Address [address] [place] [address] Phone Care Team Providers Care Testboard Operator Name Role Phone MD Cara, Payal Primary Care Provider [phone] [facility] Un[facility] [phone] Reason for Visit and Chief Complaint Medicare New Patient Plan of Treatment Pending Tests Order Diagnosis Results Due Ordering P fernando Follow Up - Appointment 1 Month Unsp fra cture of upper end of left humerus, init for clos fx 01/31/22 Homero Santos MD Last Documented On 2 9:19AM ; [facility] Assessments Includes: Assessments from this encounter No Assessments Recorded Medical Equipment - Implanted Devices Includes: Current Devices No Medical Equipment Recorded Medications Includes: Medications discussed during this encounter and other current Medications Current Medications (continue as prescribed) Oxycodone Oral Tablet 01/31/2022 Provider: Diagnosis: Last Documented On 2 8:49AM By Art Carpio ; [facility] Tylenol Oral Tablet 01/31/2022 Provider: Diagnosis: Last Documented On 2 8:49AM By Art Carpio ; [facility] Medications Administered Includes: Administered Medications from this encounter No Administered Medications Recorded Vital Signs Includes: Vital Signs from this encounter Vital Name 01/31/2022 08:48A Blood Pressure Sitting (mmHg) 150/84 Pulse Rate-Sitting (bpm) 46 Height (in) 66 Weight (lb) 190 Body Mass Index (kg/m2) 30.7 Body Surface Area (m2) 2.0 Oxygen Saturation (%) 99 Last Documented: On 01/31/2022 8:49AM ; [facility] Results Includes: Results discussed during this encounter No Results Recorded For Specified Dates History of Present Illness Includes: History of Present Illness from this encounter No History of Present Illness Recorded Social History No Social History Recorded - Smoking Status Unknown Medical History Includes: Medical History addressed during this encounter No Medical History Recorded Family History Includes: Family History addressed during this encounter No Family History Recorded Review of Systems Includes: Review of Systems from this encounter No Review of Systems Recorded Mental Status Includes: Mental Status from this encounter No Mental Status Recorded Functional Status Includes: Functional Status from this encounter No Functional Status Recorded Physical Exam Includes: Physical Exam from this encounter Encounters Encounter Provider Location Date Check-In Time Check-Out Time Diagnosis Medicare New Patient Homero Santos MD [facility] 02/01/20 22 8:40AM 9:22AM Insurance Includes: Active Insurance Policies Plan Name Member ID Group # Subscriber Relationship Effect guido Dates 1 - Medicare Part B [facility] [id number] VIV Barraza 2 - [facility] [id number] VIV Barraza Clinical Notes Includes: Clinical Notes from this encounter No Clinical Notes Recorded
--- OUTSIDE RECORDS SUMMARY | 2024-08-14 12:43 | XMS_ITS | Clinical Summary ---
Author Organization [facility] Address [address] [place] [address] Phone Care Team Providers Care Private Duty Aide Name Role Phone MD Cara, Payal Primary Care Provider [phone] [facility] [phone] Reason for Visit and Chief Complaint Established Patient Plan of Treatment Pending Tests Order Diagnosis Results Due Ordering P darrylder Follow Up - Appointment 1 Month Unsp fra cture of upper end of left humerus, init for clos fx 04/14/22 Samir Shine MD Last Documented On 2 10:39AM ; [facility] Assessments Includes: Assessments from this encounter No Assessments Recorded Medical Equipment - Implanted Devices Includes: Current Devices No Medical Equipment Recorded Medications Includes: Medications discussed during this encounter and other current Medications Current Medications (continue as prescribed) Oxycodone Oral Tablet 01/31/2022 Provider: Diagnosis: Last Documented On 2 8:49AM By Art Carpio ; [facility] Tylenol Oral Tablet 01/31/2022 Provider: Diagnosis: Last Documented On 2 8:49AM By Art Carpio ; [facility] Medications Administered Includes: Administered Medications from this encounter No Administered Medications Recorded Vital Signs Includes: Vital Signs from this encounter Vital Name 04/14/2022 10:26A Pulse Rate-Sitting (bpm) 88 Temp-Temporal 96.9 Height (in) 66 Weight (lb) 195 Body Mass Index (kg/m2) 31.5 Body Surface Area (m2) 2.0 Oxygen Saturation (%) 96 Last Documented: On 04/14/2022 10:27A M ; [facility] Results Includes: Results discussed during this encounter [...] Includes: Review of Systems from this encounter Chief complaint: Left proximal humeral fracture Date of injury: 01/01/2022 History of Present Illness: Patient is a aijdj-lcxn-iurxyzbi 76-year-old female on chronic Eliquis who tripped over a hose and fell injuring her left shoulder on 01/01/2022. been doing therapy. at home. She has not been wearing the sling. She has gained some motion but continues to have mild soreness mostly after exercises and at night. She denies numbness or tingling throughout the extremity. Denies any other acute issues. She does have some concerns about how much motion she is going to be able to regain. Continues to have pain and loss of function Physical exam: Well-appearing elderly female no acute distress found seated on the exam table. There is no erythema, ecchymosis or gross deformity noted throughout the left shoulder. She has no localized tenderness to palpation but there is diffuse tenderness throughout the shoulder. Passive abduction to 45 degrees, active abduction to 50 degrees. Passive forward flexion to 60 degrees, active forward flexion to about 60 degrees. Internal rotation to the abdomen and she is almost able to put her hand behind her back. External rotation about 20 degrees. Elbow range of motion is significantly improved. Motor and sensory intact distally. Fingertips are well-perfused. Imaging: X-rays reviewed from 01/01/2022, 01/31/2022 and 03/03/2022. There is a fracture of the surgical neck extending to the greater tuberosity. As mentioned in previous note there was displacement from the initial x-ray but there is no change in fracture position the last visit there is increased callus formation. Impression: Fracture left proximal humerus Plan: - Weightbearing: Weightbearing as tolerated left upper extremity Continue to work on therapy to improve range of motion and functionality. Based on her symptoms and pain I suspect she likely has a rotator cuff injury. Elected for an MRI of her left shoulder to evaluate the soft tissue including the rotator cuff. Based on the results of MRI she may benefit from steroid injection in the future versus possible shoulder arthroscopy with rotator cuff surgery. Mental Status Includes: Mental Status from this encounter No Mental Status Recorded Functional Status Includes: Functional Status from this encounter No Functional Status Recorded Physical Exam Includes: Physical Exam from this encounter Encounters Encounter Provider Location Date Check-In Time Check-Out Time Diagnosis Established Patient Samir Shine MD [facility] 022 10:00AM 10:38AM Insurance Includes: Active Insurance Policies Plan Name Member ID Group # Subscriber Relationship Effect guido Dates 1 - Medicare Part B [facility] [id number] VIV Barraza 2 - [facility] [id number] VIV Barraza Clinical Notes Includes: Clinical Notes from this encounter No Clinical Notes Recorded
--- OUTSIDE RECORDS SUMMARY | 2024-08-14 12:43 | XMS_ITS ---
Author Organization [facility] Address [address] [place] [address] Phone Care Team Providers Care Assistant Professor Name Role Phone MD Cara, Payal Primary Care Provider [phone] [facility] [phone] Plan of Treatment No Plan of Treatment Recorded Assessments Includes: Assessments for all patient encounters No Assessments Recorded Medical Equipment - Implanted Devices Includes: Current and historical Devices No Medical Equipment Recorded Medications Includes: Current and historical Medications Current Medications (continue as prescribed) Oxycodone Oral Tablet 01/31/2022 Provider: Diagnosis: Last Documented On 2 8:49AM By Art Carpio ; [facility] Tylenol Oral Tablet 01/31/2022 Provider: Diagnosis: Last Documented On 2 8:49AM By Art Carpio ; [facility] Medications Administered Includes: Administered Medications in patient's chart No Administered Medications Recorded Results Includes: Results from 08/14/2023 through 08/14/2024 No Results Recorded For Specified Dates History of Present Illness History of Present Illness not supported for this document type No History of Present Illness Recorded Social History No Social History Recorded - Smoking Status Unknown Medical History Includes: Medical History in patient's chart No Medical History Recorded Family History Includes: Family History in patient's chart No Family History Recorded Review of Systems Review of Systems not supported for this document type No Review of Systems Recorded Mental Status No Mental Status Recorded Functional Status No Functional Status Recorded Physical Exam Physical Exam not supported for this document type No Physical Exam Recorded Insurance Includes: Active Insurance Policies Plan Name Member ID Group # Subscriber Relationship Effect guido Dates 1 - Medicare Part B [facility] [id number] VIV ESCOBEDO Self 2 - [facility] [id number] VIV ESCOBEDO Self Clinical Notes Includes: Signed Clinical Notes starting from 08/07/2022 No Clinical Notes Recorded
--- OUTSIDE RECORDS SUMMARY | 2024-08-14 12:43 | XMS_ITS | Clinical Summary ---
Author Organization [facility] Address [address] [place] [address] Phone Care Team Providers Care Organizational Development Manager Name Role Phone MD Cara, Payal Primary Care Provider [phone] [place] [facility] [phone] Reason for Visit and Chief Complaint Established Patient Plan of Treatment Pending Tests Order Diagnosis Results Due Ordering P fernando Follow Up - Appointment 6 weeks Unsp fra cture of upper end of left humerus, init for clos fx 03/03/22 Lore Calhoun PA-C Last Documented On 2 9:13AM ; [facility] Assessments Includes: Assessments from this encounter No Assessments Recorded Medical Equipment - Implanted Devices Includes: Current Devices No Medical Equipment Recorded Medications Includes: Medications discussed during this encounter and other current Medications Current Medications (continue as prescribed) Oxycodone Oral Tablet 01/31/2022 Provider: Diagnosis: Last Documented On 2 8:49AM By Art Carpio ; [facility] Tylenol Oral Tablet 01/31/2022 Provider: Diagnosis: Last Documented On 2 8:49AM By Art Carpio ; [facility] Medications Administered Includes: Administered Medications from this encounter No Administered Medications Recorded Vital Signs Includes: Vital Signs from this encounter Vital Name 03/03/2022 08:42A Blood Pressure Sitting (mmHg) 145/86 Pulse Rate-Sitting (bpm) 94 Temp-Temporal 97.2 Height (in) 66 Weight (lb) 190 Body Mass Index (kg/m2) 30.7 Body Surface Area (m2) 2.0 Oxygen Saturation (%) 97 Last Documented: On 03/03/2022 8:43AM ; [facility] Results Includes: Results discussed during this [...] Check-In Time Check-Out Time Diagnosis Established Patient Lore YANES [facility] 03/03/20 22 8:28AM 9:04AM Insurance Includes: Active Insurance Policies Plan Name Member ID Group # Subscriber Relationship Effect guido Dates 1 - Medicare Part B [facility] [id number] VIV Barraza 2 - [facility] [id number] VIV Barraza Clinical Notes Includes: Clinical Notes from this encounter No Clinical Notes Recorded
--- OUTSIDE RECORDS SUMMARY | 2024-08-14 12:43 | XMS_ITS | Clinical Summary ---
Author Organization Unknown Care Team Providers Care Electron Tube Assembler Name Role Phone YOLANDA COLLINS, JESE Unavailable Unavailable ANUPAM PT, JAY Unavailable Unavailable AFTAB OT, MORA Unavailable Unavailable Payers Payer Name Policy Type Policy Number Effective Date Expira tion Date MEDICARE.NGS.PDGM [id number] Problems Condition Name Condition Details Condition Category Status Onset Date Resolution Date Last Treatment Date Treating Clinician Comments UNSP FX UPPER END OF L HUMERUS, SUBS FOR FX W ROUTN HEAL Active 05-05 00:00: 00 UNSPECIFIED ATRIAL FIBRILLATION Active 01-02 00:00: 00 OTHER PULMONARY EMBOLISM WITHOUT ACUTE COR PULMONALE Active 01-02 00:00: 00 ACUTE EMBOLISM AND THROMBOSIS OF RIGHT POPLITEAL VEIN Active 01-02 00:00: 00 CHRONIC OBSTRUCTIVE PULMONARY DISEASE, UNSPECIFIED Active 08-28 00:00: 00 ESSENTIAL (PRIMARY) HYPERTENSION Active 08-28 00:00: 00 ALCOHOL ABUSE, UNCOMPLICATE D Active 08-28 00:00: 00 NICOTINE DEPENDENCE, CIGARETTES, UNCOMPLICATE D Active 08-28 00:00: 00 HYPERLIPIDEM IA, UNSPECIFIED Active 08-28 00:00: 00 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 Ordering Clinician Indication Dosage Frequency Signature (SIG) Comments Components Acetaminoph en Extra Strength 500 mg tablet 03-10 00:00: 00 Yes [id number] PAIN Per instruc tions EVERY 4 HOURS Per instructio ns EVERY 4 HOURS (route: oral) Med Classific ation: Analgesic , Anti-infl ammatory or Antipyret ic Anoro Ellipta 62.5 mcg-25 mcg/actuati on powder for inhalation 03-10 00:00: 00 Yes [id number] SOB Per instruc tions DAILY Per instructio ns DAILY (route: inhalation ) Med Classific ation: Respirato ry Therapy Agents B12 Active 1,000 mcg chewable tablet 03-10 00:00: 00 Yes [id number] SUPPLEMENT Per instruc tions EVERY OTHER DAY Per instructio ns EVERY OTHER DAY (route: oral) Med Classific ation: Electroly te Balance-N utritiona l Products Calcium 600 + D(3) 600 mg-10 mcg (400 unit) tablet 03-10 00:00: 00 Yes [id number] SUPPLEMENT Per instruc tions DAILY Per instructio ns DAILY (route: oral) Med Classific ation: Electroly te Balance-N utritiona l Products Combivent Respimat 20 mcg-100 mcg/actuati on solution for inhalation 03-10 00:00: 00 Yes [id number] SOB Per instruc tions EVERY 6 HOURS Per instructio ns EVERY 6 HOURS (route: inhalation ) Med Classific ation: Respirato ry Therapy Agents Purelax 17 gram/dose oral powder 03-10 00:00: 00 Yes [id number] CONSTIPATIO N Per instruc tions DAILY Per instructio ns DAILY (route: oral) Med Classific ation: Gastroint estinal Therapy Agents cyclosporin e 0.05 % eye drops in a dropperette 03-10 00:00: 00 Yes [id number] EYE DRYNESS Per instruc tions DAILY Per instructio ns DAILY (route: ophthalmic (eye)) Med Classific ation: Ophthalmi c Agents diclofenac 1 % topical gel 03-10 00:00: 00 Yes [id number] PAIN Per instruc tions EVERY 6 HOURS Per instructio ns EVERY 6 HOURS (route: topical) Med Classific ation: Dermatolo gical Eliquis 5 mg tablet 03-10 00:00: 00 Yes [id number] ANTICOAGULA TION Per instruc tions 2 TIMES DAILY Per instructio ns 2 TIMES DAILY (route: oral) Med Classific ation: Hematolog ical Agents Lexapro 5 mg tablet 03-10 00:00: 00 Yes [id number] ANTIDEPRESS ANT Per instruc tions DAILY Per instructio ns DAILY (route: oral) Med Classific ation: Central Nervous System Agents lovastatin 20 mg tablet 03-10 00:00: 00 Yes [id number] HTN Per instruc tions DAILY Per instructio ns DAILY (route: oral) Med Classific ation: Cardiovas cular Therapy Agents Norvasc 5 mg tablet 03-10 00:00: 00 Yes [id number] HTN Per instruc tions DAILY Per instructio ns DAILY (route: oral) Med Classific ation: Cardiovas cular Therapy Agents Vitamin C 1,000 mg tablet 03-10 00:00: 00 Yes [id number] SUPPLEMENT Per instruc tions DAILY Per instructio ns DAILY (route: oral) Med Classific ation: Electroly te Balance-N utritiona l Products vitamin E 400 unit capsule 03-10 00:00: 00 Yes [id number] SUPPLEMENT Per instruc tions DAILY Per instructio ns DAILY (route: oral) Med Classific ation: Electroly te Balance-N utritiona l Products Vital Signs Vital Name Observation Time Observation Value Commen ts Temperature 2022-06-30 15:42:00.000 97.3 [degF] Temperature 2022-05-31 13:10:00.000 97.7 [degF] Temperature 2022-05-19 12:55:00.000 97.2 [degF] Pulse 2022-06-30 15:42:00.000 98 /min Pulse 2022-05-31 13:10:00.000 86 /min Pulse 2022-05-19 12:55:00.000 80 /min O2 Saturation (%) 2022-06-30 15:42:00.000 93 % O2 Saturation (%) 2022-05-31 13:10:00.000 98 % Respirations 2022-06-30 15:42:00.000 20 /min Respirations 2022-05-31 13:10:00.000 16 /min Respirations 2022-05-19 12:55:00.000 18 /min Systolic Blood Pressure 2022-06-30 15:42:00.000 120 mm [Hg] Systolic Blood Pressure 2022-05-31 13:10:00.000 124 mm [Hg] Systolic Blood Pressure 2022-05-19 12:55:00.000 120 mm [Hg] Diastolic Blood Pressure 2022-06-30 15:42:00.000 68 mm [Hg] Diastolic Blood Pressure 2022-05-31 13:10:00.000 68 mm [Hg] Diastolic Blood Pressure 2022-05-19 12:55:00.000 68 mm [Hg] Plan of Treatment Planned Activity Planned Date Details Comments Future Scheduled Test AGENCY MAY PERFORM A RESUMPTION OF CARE VISIT FOLLOWING ANY HOSPITAL ADMISSION. OCCUPATIONAL THERAPY TO EVALUATE, ASSESS, AND MONITOR, PROVIDE SKILLED THERAPEUTIC INTERVENTION, ACTIVITY, EDUCATION, AND TRAINING TO ADDRESS; [code = AGENCY MAY PERFORM A RESUMPTION OF CARE VISIT FOLLOWING ANY HOSPITAL ADMISSION. OCCUPATIONAL THERAPY TO EVALUATE, ASSESS, AND MONITOR, PROVIDE SKILLED THERAPEUTIC INTERVENTION, ACTIVITY, EDUCATION, AND TRAINING TO ADDRESS;] Future Scheduled Test HEALTH MAN AGEMENT- PHYSICAL ACTIVITY (OT) [code = HEALTH MANAGEMENT- PHYSICAL ACTIVITY (OT)] Future Scheduled Test HOME SAFET Y/PERSONAL SAFETY/EMERGENCY MANAGEMENT (OT) [code = HOME SAFETY/PERSONAL SAFETY/EMERGENCY MANAGEMENT (OT)] Future Scheduled Test HOME ESTAB LISHMENT AND HOME MAINTENANCE (OT) [code = HOME ESTABLISHMENT AND HOME MAINTENANCE (OT)] Future Scheduled Test FALL REDUC TION (OT) [code = FALL REDUCTION (OT)] Future Scheduled Test PAIN MANAG EMENT (OT) [code = PAIN MANAGEMENT (OT)] Future Scheduled Test OCCUPATION AL THERAPY TO INSTRUCT PATIENT/CAREGIVER ON RISK FOR HOSPITALIZATION, TEACH SIGNS AND SYMPTOMS THAT PUT PATIENT AT RISK, WHEN TO NOTIFY CLINICIAN OF COMPLICATIONS/DECLINE, AND WHEN TO CALL 911. OCCUPATIONAL THERAPY TO INSTRUCT PATIENT/CAREGIVER ON: SIGNS AND SYMPTOMS TO BE ON ALERT FOR EARLY INTERVENTION, PRIOR TO NEEDING EMERGENCY SERVICES CALL NURSE FIRST TO KEEP SALES SUPPORT ENGINEER SYMPTOM REPORT FOR VISIBLE REFERENCE NOTIFY CLINICIAN/PHYSICIAN FOR DECLINE IN STATUS WHEN AND HOW TO CALL HOME HEALTH AGENCY FACILITATE PHYSICIAN FOLLOW UP APPOINTMENT IDENTIFY SOCIOECONOMIC CONCERNS AND MAKE APPROPRIATE REFERRAL NEEDED [code = OCCUPATIONAL THERAPY TO INSTRUCT PATIENT/CAREGIVER ON RISK FOR HOSPITALIZATION, TEACH SIGNS AND SYMPTOMS THAT PUT PATIENT AT RISK, WHEN TO NOTIFY CLINICIAN OF COMPLICATIONS/DECLINE, AND WHEN TO CALL 911. OCCUPATIONAL THERAPY TO INSTRUCT PATIENT/CAREGIVER ON: SIGNS AND SYMPTOMS TO BE ON ALERT FOR EARLY INTERVENTION, PRIOR TO NEEDING EMERGENCY SERVICES CALL NURSE FIRST TO KEEP SALES SUPPORT ENGINEER SYMPTOM REPORT FOR VISIBLE REFERENCE NOTIFY CLINICIAN/PHYSICIAN FOR DECLINE IN STATUS WHEN AND HOW TO CALL HOME HEALTH AGENCY FACILITATE PHYSICIAN FOLLOW UP APPOINTMENT IDENTIFY SOCIOECONOMIC CONCERNS AND MAKE APPROPRIATE REFERRAL NEEDED] Goal 2022-05-05 Patient Goal - USE MY ARM AND BE INDEPENDENT AGAIN Goal 2022-06-30 Patient Goal - USE MY ARM AND BE INDEPENDENT AGAIN Goal Provider Goal - L HUMERUS FX AND CONDITIONING PROGRAM TRAINING, FALL PREVENTION MANAGEMENT, IADL RETRAINING, PAIN MANAGEMENT, HOME SAFETY MANAGEMENT. Goal Provider Goal - OT STG: PATIENT WILL DEMONSTRATE IMPROVED L SH CONDITIONING PROGRAM TRAINING WITH SUPERVISION WITHIN 2 WEEKS. OT LTG: PATIENT WILL DEMONSTRATE THE ABILITY TO COMPLETE A THERAPEUTIC TASK ORIENTED PROGRAM TO RESTORE PHYSICAL FUNCTION/HEALTH MANAGEMENT FROM SBA AND CUES TO INDEPENDENT WITHIN 8 WEEKS. Goal Provider Goal - OT LTG: PATIENT WILL DEMONSTRATE THE ABILITY TO COMPLETE HOME/PERSONAL SAFETY AND EMERGENCY MANAGEMENT PROCEDURES FROM SUPERVISION AND CUES TO INDEPENDENT WITHIN 8 WEEKS. Goal Provider Goal - OT STG: PATIENT WILL DEMONSTRATE IMPROVED IADLS WITH SUPERVISION AND CUES WITHIN 2 WEEKS. OT LTG: PATIENT WILL DEMONSTRATE THE ABILITY TO COMPLETE HOME ESTABLISHMENT/MANAGEMENT FROM MIN ASSIST TO INDEPENDENT WITHIN 8 WEEKS. Goal Provider Goal - PATIENT/CAREGIVER WILL BE ABLE TO IMPLEMENT OCCUPATIONAL THERAPY EDUCATION RECOMMENDATIONS SPECIFIC TO FALL REDUCTION FOR IMPROVED ADL/IADL COMPLETION AND HOME SAFETY BY DISCHARGE. Goal Provider Goal - PATIENT WILL VERBALIZE UNDERSTANDING OF PAIN MANAGEMENT TECHNIQUES BY DISCHARGE. Goal Provider Goal - PATIENT/CAREGIVER WILL VERBALIZE UNDERSTANDING OF SIGNS AND SYMPTOMS THAT PUT THE PATIENT AT RISK FOR HOSPITALIZATION, WHEN TO NOTIFY THERAPIST/NURSE OF COMPLICATIONS/DECLINE AND WHEN TO CALL 911. Reason for Visit INDEPENDENT IN THE COMMUNITY Encounters Start Date/Time End Date/Time Encounter Type Admission Type Attending [facility] Care Department Encounter ID Discharge Date Discharge Status Discharge Condition Discharge Reason Percent Goals Met 2022-03-10 00:00:00 2022-06-30 00:00:00 Outpatient RECERTIFIC [facility] [id number] 2022-06-30 00:00:00 DISCHARGE TO HOME OR SELF CARE INDEPENDEN T IN THE COMMUNITY HH OR PAL- GOALS MET 100.00
--- OUTSIDE RECORDS SUMMARY | 2024-08-14 12:43 | XMS_ITS ---
Care Plan - [facility] Created on: August 14, 2024 GREGGALEMNE : 1945 Sex: Female Author Organization [facility] Address [address] [place] [address] Phone Care Team Providers Care Press Puller Name Role Phone MD Cara, Payal Primary Care Provider [phone] [facility] Unavailable [phone]
--- OUTSIDE RECORDS SUMMARY | 2024-08-14 12:44 | XMS_ITS | Clinical Summary ---
Author Organization Unknown Care Team Providers Care Sand Miller Name Role Phone YOLANDA COLLINS, JESE Unavailable Unavailable DIAMOND RN, CHRISTINA Unavailable Unavailable ERIN DAY OT Unavailable Unavailabl e Payers Payer Name Policy Type Policy Number Effective Date Expira tion Date MEDICARE - [place] - [id number] Problems Condition Name Condition Details Condition Category Status Onset Date Resolution Date Last Treatment Date Treating Clinician Comments AFTERCARE FOLLOWING JOINT REPLACEMENT SURGERY Active 08-28 00:00: 00 PRESENCE OF LEFT ARTIFICIAL SHOULDER JOINT Active 08-28 00:00: 00 UNSPECIFIED ATRIAL FIBRILLATION Active 08-28 00:00: 00 CHRONIC OBSTRUCTIVE PULMONARY DISEASE, UNSPECIFIED Active 08-28 00:00: 00 ESSENTIAL (PRIMARY) HYPERTENSION Active 08-28 00:00: 00 OBESITY, UNSPECIFIED Active 08-28 00:00: 00 BODY MASS INDEX [BMI]30.0-30 .9, ADULT Active 08-28 00:00: 00 UNSPECIFIED OSTEOARTHRIT IS, UNSPECIFIED SITE Active 08-28 00:00: 00 HYPERLIPIDEM IA, UNSPECIFIED Active 08-28 00:00: 00 HYPOMAGNESEM IA Active 08-28 00:00: 00 PERSONAL HISTORY OF OTHER VENOUS THROMBOSIS AND EMBOLISM Active 08-28 00:00: 00 ACQUIRED ABSENCE OF OTHER SPECIFIED PARTS OF DIGESTIVE TRACT Active 08-28 00:00: 00 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 Ordering Clinician Indication Dosage Frequency Signature (SIG) Comments Components Anoro Ellipta 62.5 mcg-25 mcg/actuati on powder for inhalation 12-04 00:00: 00 Yes [id number] Per instruc tions 1 INHALATION DAILY Per instructio ns 1 INHALATION DAILY (route: inhalation ) Med Classific ation: Respirato ry Therapy Agents Eliquis 5 mg tablet 12-04 00:00: 00 Yes [id number] Per instruc tions TWICE A DAY Per instructio ns TWICE A DAY (route: oral) Med Classific ation: Hematolog ical Agents acetaminoph en 325 mg capsule 05-09 00:00: 00 Yes [id number] 3 capsule NEEDED 3 capsule NEEDED (route: oral) Med Classific ation: Analgesic , Anti-infl ammatory or Antipyret ic albuterol sulfate HFA 90 mcg/actuati on aerosol inhaler 05-09 00:00: 00 Yes [id number] 1 puff NEEDED 1 puff NEEDED (route: inhalation ) Med Classific ation: Respirato ry Therapy Agents amlodipine 5 mg tablet 05-09 00:00: 00 Yes [id number] 1 tablet DAILY 1 tablet DAILY (route: oral) Med Classific ation: Cardiovas cular Therapy Agents Colace 100 mg capsule 05-09 00:00: 00 Yes [id number] 1 capsule NEEDED 1 capsule NEEDED (route: oral) Med Classific ation: Gastroint estinal Therapy Agents cyanocobala min (vit B-12) 1,000 mcg sublingual tablet 05-09 00:00: 00 Yes [id number] 2 tablet DAILY 2 tablet DAILY (route: sublingual ) Med Classific ation: Electroly te Balance-N utritiona l Products lovastatin 40 mg tablet 05-09 00:00: 00 Yes [id number] 1 tablet BEDTIME 1 tablet BEDTIME (route: oral) Med Classific ation: Cardiovas cular Therapy Agents Magnesium (oxide/AA chelate) 300 mg capsule 05-09 00:00: 00 Yes [id number] 1 capsule DAILY 1 capsule DAILY (route: oral) Med Classific ation: Electroly te Balance-N utritiona Linq3 Products meclizine 12.5 mg tablet 05-09 00:00: 00 Yes [id number] 2 tablet NEEDED 2 tablet NEEDED (route: oral) Med Classific ation: Gastroint estinal Therapy Agents metoprolol tartrate 25 mg tablet 05-09 00:00: 00 Yes [id number] 0.5 tablet 2 TIMES DAILY 0.5 tablet 2 TIMES DAILY (route: oral) Med Classific ation: Cardiovas cular Therapy Agents Miralax 17 gram oral powder packet 05-09 00:00: 00 Yes [id number] 1 powder in packet NEEDED 1 powder in packet NEEDED (route: oral) Med Classific ation: Gastroint estinal Therapy Agents Multivitami n 50 Plus tablet 05-09 00:00: 00 Yes [id number] 1 tablet DAILY 1 tablet DAILY (route: oral) Med Classific ation: Electroly te Balance-N Poyntitiona Linq3 Products Os-Solis 500 + D3 500 mg-5 mcg (200 unit) tablet 05-09 00:00: 00 Yes [id number] 1 tablet DAILY 1 tablet DAILY (route: oral) Med Classific ation: Electroly te Balance-N Poyntitiona Linq3 Products oxycodone 5 mg capsule 05-09 00:00: 00 Yes [id number] 1 capsule NEEDED 1 capsule NEEDED (route: oral) Med Classific ation: Analgesic , Anti-infl ammatory or Antipyret ic Restasis 0.05 % eye drops in a dropperette 05-09 00:00: 00 Yes [id number] 1 dropper ette BEDTIME 1 dropperett e BEDTIME (route: ophthalmic (eye)) Med Classific ation: Ophthalmi c Agents Trelegy Ellipta 100 mcg-62.5 mcg-25 mcg powder for inhalation 05-09 00:00: 00 Yes [id number] 1 inhalat ion DAILY 1 inhalation DAILY (route: inhalation ) Med Classific ation: Respirato ry Therapy Agents nystatin-tr iamcinolone 100,000 unit/g-0.1 % topical cream 05-09 00:00: 00 Yes [id number] Per instruc tions DAILY Per instructio ns DAILY (route: topical) Med Classific ation: Dermatolo gical ergocalcife rol (vitamin D2) 1,250 mcg (50,000 unit) capsule 05-09 00:00: 00 Yes [id number] 1 capsule WEEKLY 1 capsule WEEKLY (route: oral) Med Classific ation: Electroly te Balance-N utritiona l Products Immunizations Ordered Immunization Name Filled Immunization Name Date Status Comments Refusal Reason COVID-19, COVID-19 2024-05-09 00:00:00 Vital Signs Vital Name Observation Time Observation Value Commen ts Temperature 2024-06-24 10:43:00.000 97.3 [degF] Temperature 2024-06-19 10:11:00.000 97.7 [degF] Temperature 2024-06-10 13:45:00.000 97.8 [degF] Temperature 2024-06-03 11:24:00.000 96.9 [degF] Temperature 2024-05-27 11:42:00.000 97.2 [degF] Temperature 2024-05-23 10:14:00.000 97.8 [degF] Temperature 2024-05-16 20:16:00.000 97.8 [degF] Temperature 2024-05-14 12:50:00.000 97.3 [degF] Temperature 2024-05-13 11:57:00.000 97.6 [degF] Temperature 2024-05-09 10:33:00.000 97.3 [degF] BMI (%) 2024-05-09 10:33:00.000 30 kg/m2 Height 2024-05-09 10:33:00.000 66 [in_us] Pulse 2024-06-24 10:43:00.000 80 /min Pulse 2024-06-19 10:11:00.000 78 /min Pulse 2024-06-10 13:45:00.000 88 /min Pulse 2024-06-03 11:24:00.000 62 /min Pulse 2024-05-27 11:42:00.000 87 /min Pulse 2024-05-27 11:41:00.000 68 /min Pulse 2024-05-23 10:14:00.000 72 /min Pulse 2024-05-20 10:56:00.000 68 /min Pulse 2024-05-16 20:16:00.000 63 /min Pulse 2024-05-15 09:33:00.000 78 /min Pulse 2024-05-14 12:50:00.000 97 /min Pulse 2024-05-13 11:57:00.000 68 /min Pulse 2024-05-09 10:33:00.000 74 /min O2 Saturation (%) 2024-06-24 10:44:00.000 97 % O2 Saturation (%) 2024-06-19 10:12:00.000 96 % O2 Saturation (%) 2024-06-10 13:45:00.000 95 % O2 Saturation (%) 2024-06-03 11:24:00.000 96 % O2 Saturation (%) 2024-05-27 11:42:00.000 98 % O2 Saturation (%) 2024-05-27 11:41:00.000 98 % O2 Saturation (%) 2024-05-20 10:56:00.000 97 % O2 Saturation (%) 2024-05-16 20:16:00.000 97 % O2 Saturation (%) 2024-05-15 09:33:00.000 97 % O2 Saturation (%) 2024-05-14 12:50:00.000 99 % O2 Saturation (%) 2024-05-13 11:58:00.000 97 % O2 Saturation (%) 2024-05-09 10:35:00.000 95 % Respirations 2024-06-24 10:43:00.000 18 /min Respirations 2024-06-19 10:11:00.000 18 /min Respirations 2024-06-10 13:45:00.000 18 /min Respirations 2024-06-03 11:24:00.000 18 /min Respirations 2024-05-27 11:42:00.000 18 /min Respirations 2024-05-23 10:14:00.000 18 /min Respirations 2024-05-16 20:16:00.000 18 /min Respirations 2024-05-14 12:50:00.000 18 /min Respirations 2024-05-13 11:57:00.000 18 /min Respirations 2024-05-09 10:33:00.000 18 /min Weight (lbs) 2024-05-09 10:33:00.000 190 [lb_av] Systolic Blood Pressure 2024-06-24 10:43:00.000 130 mm [Hg] Systolic Blood Pressure 2024-06-19 10:11:00.000 130 mm [Hg] Systolic Blood Pressure 2024-06-10 13:45:00.000 128 mm [Hg] Systolic Blood Pressure 2024-06-03 11:24:00.000 124 mm [Hg] Systolic Blood Pressure 2024-05-27 11:42:00.000 132 mm [Hg] Systolic Blood Pressure 2024-05-27 11:41:00.000 132 mm [Hg] Systolic Blood Pressure 2024-05-23 10:14:00.000 120 mm [Hg] Systolic Blood Pressure 2024-05-16 20:16:00.000 114 mm [Hg] Systolic Blood Pressure 2024-05-15 09:33:00.000 122 mm [Hg] Systolic Blood Pressure 2024-05-14 12:50:00.000 134 mm [Hg] Systolic Blood Pressure 2024-05-13 11:57:00.000 110 mm [Hg] Systolic Blood Pressure 2024-05-09 10:33:00.000 110 mm [Hg] Diastolic Blood Pressure 2024-06-24 10:43:00.000 70 mm [Hg] Diastolic Blood Pressure 2024-06-19 10:11:00.000 72 mm [Hg] Diastolic Blood Pressure 2024-06-10 13:45:00.000 72 mm [Hg] Diastolic Blood Pressure 2024-06-03 11:24:00.000 76 mm [Hg] Diastolic Blood Pressure 2024-05-27 11:42:00.000 80 mm [Hg] Diastolic Blood Pressure 2024-05-27 11:41:00.000 80 mm [Hg] Diastolic Blood Pressure 2024-05-23 10:14:00.000 70 mm [Hg] Diastolic Blood Pressure 2024-05-16 20:16:00.000 76 mm [Hg] Diastolic Blood Pressure 2024-05-15 09:33:00.000 80 mm [Hg] Diastolic Blood Pressure 2024-05-14 12:50:00.000 85 mm [Hg] Diastolic Blood Pressure 2024-05-13 11:57:00.000 60 mm [Hg] Diastolic Blood Pressure 2024-05-09 10:33:00.000 60 mm [Hg] Plan of Treatment Planned Activity Planned Date Details Comments Future Scheduled Test SKILLED NU RSE TO EVALUATE PATIENT, IDENTIFY PRIMARY AND CO-MORBID CONDITIONS CODED PER CODING GUIDELINES, AND DEVELOP PATIENT SPECIFIC PLAN OF CARE THAT INCLUDES PATIENT GOAL FOR HOME HEALTH. [code = SKILLED NURSE TO EVALUATE PATIENT, IDENTIFY PRIMARY AND CO-MORBID CONDITIONS CODED PER CODING GUIDELINES, AND DEVELOP PATIENT SPECIFIC PLAN OF CARE THAT INCLUDES PATIENT GOAL FOR HOME HEALTH.] Future Scheduled Test SKILLED NU RSE TO REVIEW PATIENT MEDICATIONS. INSTRUCT PATIENT/CAREGIVER ON MONITORING OF EFFECTIVENESS, ADVERSE DRUG REACTIONS, SIDE EFFECTS OF ALL MEDICATIONS (PRESCRIPTION/-OTC), AND HOW AND WHEN TO REPORT PROBLEMS. [code = SKILLED NURSE TO REVIEW PATIENT MEDICATIONS. INSTRUCT PATIENT/CAREGIVER ON MONITORING OF EFFECTIVENESS, ADVERSE DRUG REACTIONS, SIDE EFFECTS OF ALL MEDICATIONS (PRESCRIPTION/-OTC), AND HOW AND WHEN TO REPORT PROBLEMS.] Future Scheduled Test SKILLED NU RSE FOR O/A, TEACHING, AND MANAGEMENT OF HLD. [code = SKILLED NURSE FOR O/A, TEACHING, AND MANAGEMENT OF HLD.] Future Scheduled Test OCCUPATION AL THERAPIST TO EVALUATE PATIENT FOR SAFETY ASSESS [code = OCCUPATIONAL THERAPIST TO EVALUATE PATIENT FOR SAFETY ASSESS] Future Scheduled Test SKILLED NU RSE FOR O/A TO IDENTIFY CHANGES ASSOCIATED WITH NEURO AND PROVIDE INSTRUCTION RELATED TO SAFETY MEASURES TO PREVENT INJURY SECONDARY TO IMPAIRED NEUROLOGICAL STATUS. SKILLED NURSE TO REPORT SIGNIFICANT CHANGES OF NEUROLOGIC STATUS TO PHYSICIAN FOR EARLY INTERVENTION. [code = SKILLED NURSE FOR O/A TO IDENTIFY CHANGES ASSOCIATED WITH NEURO AND PROVIDE INSTRUCTION RELATED TO SAFETY MEASURES TO PREVENT INJURY SECONDARY TO IMPAIRED NEUROLOGICAL STATUS. SKILLED NURSE TO REPORT SIGNIFICANT CHANGES OF NEUROLOGIC STATUS TO PHYSICIAN FOR EARLY INTERVENTION.] Future Scheduled Test SKILLED NU RSE FOR O/A AND SKILLED TEACHING IN MANAGEMENT OF CIRCULATORY/VASCULAR DISEASE. [code = SKILLED NURSE FOR O/A AND SKILLED TEACHING IN MANAGEMENT OF CIRCULATORY/VASCULAR DISEASE.] Future Scheduled Test PHYSICAL T HERAPIST TO EVALUATE PATIENT FOR EXERCISE [code = PHYSICAL THERAPIST TO EVALUATE PATIENT FOR EXERCISE] Future Scheduled Test SKILLED NU RSE TO INSTRUCT PATIENT/CAREGIVER ON SIGNS AND SYMPTOMS, RISK FACTORS, COMPLICATIONS, AND MANAGEMENT OF ATRIAL FIBRILLATION. [code = SKILLED NURSE TO INSTRUCT PATIENT/CAREGIVER ON SIGNS AND SYMPTOMS, RISK FACTORS, COMPLICATIONS, AND MANAGEMENT OF ATRIAL FIBRILLATION.] Future Scheduled Test SKILLED NU RSE TO PROVIDE TEACHING ON SIGNS AND SYMPTOMS AND MANAGEMENT OF HYPERTENSION. [code = SKILLED NURSE TO PROVIDE TEACHING ON SIGNS AND SYMPTOMS AND MANAGEMENT OF HYPERTENSION.] Future Scheduled Test SKILLED NU RSE FOR O/A AND SKILLED TEACHING RELATED TO ALTERED SKIN INTEGRITY [code = SKILLED NURSE FOR O/A AND SKILLED TEACHING RELATED TO ALTERED SKIN INTEGRITY ] Future Scheduled Test SKILLED NU RSE TO INSTRUCT PATIENT/CAREGIVER ON COPD TO INCLUDE TEACHING AND SELF-MANAGEMENT RELATED TO COPD DISEASE PROCESS, SIGNS AND SYMPTOMS, AND COMPLICATIONS. [code = SKILLED NURSE TO INSTRUCT PATIENT/CAREGIVER ON COPD TO INCLUDE TEACHING AND SELF-MANAGEMENT RELATED TO COPD DISEASE PROCESS, SIGNS AND SYMPTOMS, AND COMPLICATIONS.] Future Scheduled Test SKILLED NU RSE FOR O/A AND SKILLED TEACHING RELATED TO SIGNS AND SYMPTOMS AND MANAGEMENT OF S/P LEFT SHOULDER ARTHROPLASTY, OA. [code = SKILLED NURSE FOR O/A AND SKILLED TEACHING RELATED TO SIGNS AND SYMPTOMS AND MANAGEMENT OF S/P LEFT SHOULDER ARTHROPLASTY, OA.] Future Scheduled Test VIRTUAL SIT FREQUENCY: 3-4 PRN VIRTUAL VISITS FOR HIGH RISK ASSESSMENTS AND/OR CHANGE IN STATUS MAY BE PERFORMED UTILIZING TELECOMMUNICATIONS SYSTEM TO OPTIMIZE SKILLED SERVICES FURNISHED ON THE PLAN OF CARE. SKILLED NURSE TO ESTABLISH SUPPORT MEASURES TO MINIMIZE RISK OF REHOSPITALIZATION, AND INSTRUCT PATIENT/CAREGIVER ON METHODS TO REDUCE AVOIDABLE HOSPITALIZATION. [code = VIRTUAL VISIT FREQUENCY: 3-4 PRN VIRTUAL VISITS FOR HIGH RISK ASSESSMENTS AND/OR CHANGE IN STATUS MAY BE PERFORMED UTILIZING TELECOMMUNICATIONS SYSTEM TO OPTIMIZE SKILLED SERVICES FURNISHED ON THE PLAN OF CARE. SKILLED NURSE TO ESTABLISH SUPPORT MEASURES TO MINIMIZE RISK OF REHOSPITALIZATION, AND INSTRUCT PATIENT/CAREGIVER ON METHODS TO REDUCE AVOIDABLE HOSPITALIZATION.] Future Scheduled Test PATIENT MAYORGA S A RISK OF HOSPITALIZATION AND ED USE. SKILLED NURSE TO ESTABLISH SUPPORT MEASURES TO MINIMIZE RISK OF HOSPITALIZATION AND ED USE, AND INSTRUCT PATIENT/CAREGIVER ON METHODS TO REDUCE AVOIDABLE HOSPITALIZATION AND ED USE. [code = PATIENT HAS A RISK OF HOSPITALIZATION AND ED USE. SKILLED NURSE TO ESTABLISH SUPPORT MEASURES TO MINIMIZE RISK OF HOSPITALIZATION AND ED USE, AND INSTRUCT PATIENT/CAREGIVER ON METHODS TO REDUCE AVOIDABLE HOSPITALIZATION AND ED USE.] Future Scheduled Test SKILLED NU RSE TO PROVIDE INSTRUCTION TO PATIENT/CAREGIVER RELATED TO DISCHARGE PLANNING. [code = SKILLED NURSE TO PROVIDE INSTRUCTION TO PATIENT/CAREGIVER RELATED TO DISCHARGE PLANNING.] Future Scheduled Test SKILLED NU RSE TO PERFORM HOME SAFETY AND FALL ASSESSMENT AND PROVIDE INSTRUCTION TO IMPLEMENT HOME SAFETY AND FALL PREVENTION STRATEGIES. [code = SKILLED NURSE TO PERFORM HOME SAFETY AND FALL ASSESSMENT AND PROVIDE INSTRUCTION TO IMPLEMENT HOME SAFETY AND FALL PREVENTION STRATEGIES.] Future Scheduled Test SKILLED NU RSE FOR OBSERVATION AND ASSESSMENT OF PATIENTS PAIN LEVEL AND EFFECTIVENESS OF PAIN MANAGEMENT REGIMEN. SKILLED NURSE TO INSTRUCT PATIENT/CAREGIVER REGARDING PHARMACOLOGIC AND NON-PHARMACOLOGIC PAIN CONTROL MEASURES. SKILLED NURSE TO REPORT TO PHYSICIAN IF PAIN IS UNCONTROLLED WITH CURRENT PAIN MANAGEMENT REGIMEN. [code = SKILLED NURSE FOR OBSERVATION AND ASSESSMENT OF PATIENTS PAIN LEVEL AND EFFECTIVENESS OF PAIN MANAGEMENT REGIMEN. SKILLED NURSE TO INSTRUCT PATIENT/CAREGIVER REGARDING PHARMACOLOGIC AND NON-PHARMACOLOGIC PAIN CONTROL MEASURES. SKILLED NURSE TO REPORT TO PHYSICIAN IF PAIN IS UNCONTROLLED WITH CURRENT PAIN MANAGEMENT REGIMEN.] Future Scheduled Test SKILLED NU RSE TO ASSESS PATIENT'S SKIN INTEGRITY AND INSTRUCT PATIENT/CAREGIVER ON MEASURES TO PREVENT PRESSURE ULCERS. [code = SKILLED NURSE TO ASSESS PATIENT'S SKIN INTEGRITY AND INSTRUCT PATIENT/CAREGIVER ON MEASURES TO PREVENT PRESSURE ULCERS.] Future Scheduled Test PHYSICAL T HERAPY TO EVALUATE AND TREAT. PHYSICAL THERAPY EVALUATION PERFORMED. NO ADDITIONAL VISITS REQUIRED. PATIENT IS INDEPENDENT WITH SIT TO STAND TRANSFERS FROM ALL SURFACES. SHE IS AMBULATING INSIDE HER HOME SAFELY WITHOUT AD. SPECIAL TESTS: TUG SCORE 17 SECS NO AD MMT - BILATERAL LE 5/5 IN SITTING PAIN - 2/10 LEFT SHOULDER ACHE. PAIN CONTROLLED PER PATIENT. STATES SHE IS CURRENTLY NOT TAKING ANY PAIN MEDS FOR THE PAIN. EDEMA - NO LE EDEMA. LEFT SHOULDER NOT OBSERVED NO FURTHER HOME SKILLED PT NEEDED AT THIS TIME. PATIENT IN AGREEMENT. PATIENT TO BE EVALUATED FOR HOME OT TOMORROW 05/15/24. SHE IS MORE CONCERNED ABOUT HAVING HER ADLS ADDRESSED. SPOKE TO SHLOMO @ 306PM FROM DR GUERRERO'S OFFICE RE PT EVAL ONLY AT THIS TIME. [code = PHYSICAL THERAPY TO EVALUATE AND TREAT. PHYSICAL THERAPY EVALUATION PERFORMED. NO ADDITIONAL VISITS REQUIRED. PATIENT IS INDEPENDENT WITH SIT TO STAND TRANSFERS FROM ALL SURFACES. SHE IS AMBULATING INSIDE HER HOME SAFELY WITHOUT AD. SPECIAL TESTS: TUG SCORE 17 SECS NO AD MMT - BILATERAL LE 5/5 IN SITTING PAIN - 2/10 LEFT SHOULDER ACHE. PAIN CONTROLLED PER PATIENT. STATES SHE IS CURRENTLY NOT TAKING ANY PAIN MEDS FOR THE PAIN. EDEMA - NO LE EDEMA. LEFT SHOULDER NOT OBSERVED NO FURTHER HOME SKILLED PT NEEDED AT THIS TIME. PATIENT IN AGREEMENT. PATIENT TO BE EVALUATED FOR HOME OT TOMORROW 05/15/24. SHE IS MORE CONCERNED ABOUT HAVING HER ADLS ADDRESSED. SPOKE TO SHLOMO @ 306PM FROM DR GUERRERO'S OFFICE RE PT EVAL ONLY AT THIS TIME. ] Future Scheduled Test OCCUPATION AL THERAPIST TO EVALUATE PATIENT SECONDARY TO FUNCTIONAL DEFICITS/SAFETY CONCERNS IDENTIFIED DURING EVALUATION OCCUPATIONAL THERAPY TO ESTABLISH /UPGRADE/DOWNGRADE THERAPEUTIC EXERCISE PROGRAM AND INSTRUCT PATIENT/CAREGIVER ON EXERCISE PRECAUTIONS WITH WRITTEN HOME PROGRAM. MAY INCLUDE PROM, AAROM, AROM, RROM APPROPRIATE TO IMPROVE FUNCTIONAL STRENGTH AND/OR RANGE OF MOTION. OCCUPATIONAL THERAPY TO INSTRUCT PATIENT/CAREGIVER ON SAFE TRANSFER TECHNIQUES USING PROPER BODY MECHANICS AND EQUIPMENT TO ENHANCE PARTICIPATION IN ADLS. OCCUPATIONAL THERAPY TO ASSESS AND RECOMMEND HOME SAFETY ADAPTATIONS AND EDUCATE PATIENT /CAREGIVER ON FALL PREVENTION STRATEGIES TO ENHANCE PARTICIPATION IN ADLS. OCCUPATIONAL THERAPY TO PROVIDE PATIENT/CAREGIVER WITH INSTRUCTIONS AND RECOMMENDATIONS TO IMPROVE ADLS WHILE USING APPROPRIATE ADAPTIVE DEVICES RECOMMENDED. SUMMARY OF THERAPY EVAL/ASSESSMENT FINDINGS AND REASON(S) SKILLS OF A THERAPIST ARE INDICATED: OT EVALUATION (05/15/24) PATIENT IS A 79 YEAR OLD FEMALE REFERRED TO OCCUPATIONAL THERAPY SERVICES AFTER RECENT HOSPITALIZATION DUE TO REVERSE LEFT TOTAL SHOULDER ARTHROPLASTY PERFORMED ON 04/[address] PAUL OF [facility]. PATIENT HAD FALLEN AND FRACTURED LEFT SHOULDER ROUGHLY 2 YEARS AGO WITHOUT PROPER HEALING RESULTING IN THIS SURGICAL PROCEDURE FOR PAIN MANAGEMENT. PATIENT WAS STABILIZED AND TRANSFERRED TO [facility] BEFORE DISCHARGING HOME 05/07/24. PAST MEDICAL HISTORY SIGNIFICANT FOR: DVT, HYPERTENSION, COPD. PRIOR LEVEL OF FUNCTION: PATIENT LIVES ALONE IN A SINGLE FAMILY HOME. SHE IS INDEPENDENT WITH MOBILITY ADLS AND IADLS WITHOUT DEVICES. SHE WAS DRIVING PRIOR COMPLETING SHOPPING AND LAUNDRY. CURRENT LEVEL OF FUNCTION: PATIENT SITTING IN KITCHEN UPON THERAPIST ARRIVAL. PATIENT DRESSED APPROPRIATELY AND SLING IN PLACE. PATIENT NONWEIGHTBEARING RESTRICTIONS OF LEFT UPPER EXTREMITY. PATIENT IS ALLOWED TO TAKE SLING OFF FOR ADLS. PATIENT EAGER TO TAKE A SHOWER BUT HAS BEEN WAITING UNTIL THERAPY EVALUATED. PATIENT WAS ABLE TO DEMONSTRATE [id number] TRANSFER AND AMBULATE AROUND HOUSE WITHOUT USE OF DEVICE INDEPENDENTLY. SHE WAS ABLE TO OBTAIN CLOTHING FROM DRESSER INDEPENDENTLY. PATIENT DEMONSTRATED ABILITY TO STEP IN AND OUT OF SHOWER USING GRAB BAR HOWEVER RECOMMEND TUB SEAT AND ADDITIONAL GRAB BAR FOR PATIENT'S SAFETY PERFORMING SHOWER LEVEL BATHING SEATED INSTEAD OF STANDING DUE TO INABILITY TO USE LEFT UPPER EXTREMITY AT THIS TIME FOR THE TASK. PATIENT DOES HAVE A HANDHELD SHOWERHEAD THAT WOULD ASSIST IN PATIENT'S INDEPENDENCE SEATED FOR SHOWER LEVEL BATHING. PATIENT IS PERFORMING SPONGE BATHING AT SINK LEVEL INDEPENDENTLY AND ABLE TO DRESS HERSELF USING APPROPRIATE TECHNIQUES. PATIENT WAS ABLE TO VERBALIZE DONNING SHIRT PUTTING LEFT UPPER EXTREMITY AND FIRST AND THEN UP OVER THE HEAD IN THE RIGHT ARM AND. PATIENT ALSO WAS ABLE TO VERBALIZE THE NEED TO TAKE THE GOOD ARM OUT FIRST AND THEN TAKE THE LEFT ARM OUTLAST. PATIENT HAS MEETING WITH [facility] I TODAY FOR SERVICES INCLUDING HOMEMAKING AND MEALS ON WHEELS. PATIENT DOES HAVE A [employer] BRACELET THAT ALLOWS HER TO CALL 911 WHICH SHE DID IN THE PAST. SHE OFFERS NO COMPLAINTS OF PAIN INITIALLY DURING EVALUATION HOWEVER WITH DRESSING AND TRYING TO SHIFT HER BODY FORWARD TO GET INTO HER ARMPIT SHE DID COMPLAIN OF SOME PAIN 2/10 OF THAT LEFT UPPER EXTREMITY. PATIENT ALSO REQUIRED CUES ON PROPER LEAD DONNING NEW SLING POST SHOWER THE ABDOMINAL STRAP. PATIENT HAS NEIGHBORS THAT ARE ASSISTING WITH SHOPPING CLEANING AND MEALS AT THIS TIME. EDUCATION PROVIDED TO PATIENT ON HOW TO OBTAIN TUB SEAT AND SUCTION INDICATOR GRAB BAR INSURANCE COMPANY WILL NOT COVER THIS. PATIENT WILL LOOK INTO FOR NEXT VISIT. WILL BE CONTACTING ORTHOPEDICS FOR PROTOCOL UPDATE REGARDING LEFT SHOULDER RANGE OF MOTION AND STRENGTHENING. ASSESSMENT/POC: OCCUPATIONAL THERAPY EVALUATION COMPLETED WITH RECOMMENDATION FOR SKILLED OT TO ADDRESS ADL FUNCTION, IADL SKILLS, AND PAIN MANAGEMENT/RANGE OF MOTION LEFT UPPER EXTREMITY STATUS POST REVERSE TOTAL SHOULDER PROCEDURE. PATIENT IN AGREEMENT WITH PLAN. NOTIFIED OF OT EVALUATION AND PLAN OF CARE [code = OCCUPATIONAL THERAPIST TO EVALUATE PATIENT SECONDARY TO FUNCTIONAL DEFICITS/SAFETY CONCERNS IDENTIFIED DURING EVALUATION OCCUPATIONAL THERAPY TO ESTABLISH /UPGRADE/DOWNGRADE THERAPEUTIC EXERCISE PROGRAM AND INSTRUCT PATIENT/CAREGIVER ON EXERCISE PRECAUTIONS WITH WRITTEN HOME PROGRAM. MAY INCLUDE PROM, AAROM, AROM, RROM APPROPRIATE TO IMPROVE FUNCTIONAL STRENGTH AND/OR RANGE OF MOTION. OCCUPATIONAL THERAPY TO INSTRUCT PATIENT/CAREGIVER ON SAFE TRANSFER TECHNIQUES USING PROPER BODY MECHANICS AND EQUIPMENT TO ENHANCE PARTICIPATION IN ADLS. OCCUPATIONAL THERAPY TO ASSESS AND RECOMMEND HOME SAFETY ADAPTATIONS AND EDUCATE PATIENT /CAREGIVER ON FALL PREVENTION STRATEGIES TO ENHANCE PARTICIPATION IN ADLS. OCCUPATIONAL THERAPY TO PROVIDE PATIENT/CAREGIVER WITH INSTRUCTIONS AND RECOMMENDATIONS TO IMPROVE ADLS WHILE USING APPROPRIATE ADAPTIVE DEVICES RECOMMENDED. SUMMARY OF THERAPY EVAL/ASSESSMENT FINDINGS AND REASON(S) SKILLS OF A THERAPIST ARE INDICATED: OT EVALUATION (05/15/24) PATIENT IS A 79 YEAR OLD FEMALE REFERRED TO OCCUPATIONAL THERAPY SERVICES AFTER RECENT HOSPITALIZATION DUE TO REVERSE LEFT TOTAL SHOULDER ARTHROPLASTY PERFORMED ON 04/[address] PAUL OF [facility]. PATIENT HAD FALLEN AND FRACTURED LEFT SHOULDER ROUGHLY 2 YEARS AGO WITHOUT PROPER HEALING RESULTING IN THIS SURGICAL PROCEDURE FOR PAIN MANAGEMENT. PATIENT WAS STABILIZED AND TRANSFERRED TO [facility] BEFORE DISCHARGING HOME 05/07/24. PAST MEDICAL HISTORY SIGNIFICANT FOR: DVT, HYPERTENSION, COPD. PRIOR LEVEL OF FUNCTION: PATIENT LIVES ALONE IN A SINGLE FAMILY HOME. SHE IS INDEPENDENT WITH MOBILITY ADLS AND IADLS WITHOUT DEVICES. SHE WAS DRIVING PRIOR COMPLETING SHOPPING AND LAUNDRY. CURRENT LEVEL OF FUNCTION: PATIENT SITTING IN KITCHEN UPON THERAPIST ARRIVAL. PATIENT DRESSED APPROPRIATELY AND SLING IN PLACE. PATIENT NONWEIGHTBEARING RESTRICTIONS OF LEFT UPPER EXTREMITY. PATIENT IS ALLOWED TO TAKE SLING OFF FOR ADLS. PATIENT EAGER TO TAKE A SHOWER BUT HAS BEEN WAITING UNTIL THERAPY EVALUATED. PATIENT WAS ABLE TO DEMONSTRATE [id number] TRANSFER AND AMBULATE AROUND HOUSE WITHOUT USE OF DEVICE INDEPENDENTLY. SHE WAS ABLE TO OBTAIN CLOTHING FROM DRESSER INDEPENDENTLY. PATIENT DEMONSTRATED ABILITY TO STEP IN AND OUT OF SHOWER USING GRAB BAR HOWEVER RECOMMEND TUB SEAT AND ADDITIONAL GRAB BAR FOR PATIENT'S SAFETY PERFORMING SHOWER LEVEL BATHING SEATED INSTEAD OF STANDING DUE TO INABILITY TO USE LEFT UPPER EXTREMITY AT THIS TIME FOR THE TASK. PATIENT DOES HAVE A HANDHELD SHOWERHEAD THAT WOULD ASSIST IN PATIENT'S INDEPENDENCE SEATED FOR SHOWER LEVEL BATHING. PATIENT IS PERFORMING SPONGE BATHING AT SINK LEVEL INDEPENDENTLY AND ABLE TO DRESS HERSELF USING APPROPRIATE TECHNIQUES. PATIENT WAS ABLE TO VERBALIZE DONNING SHIRT PUTTING LEFT UPPER EXTREMITY AND FIRST AND THEN UP OVER THE HEAD IN THE RIGHT ARM AND. PATIENT ALSO WAS ABLE TO VERBALIZE THE NEED TO TAKE THE GOOD ARM OUT FIRST AND THEN TAKE THE LEFT ARM OUTLAST. PATIENT HAS MEETING WITH [facility] I TODAY FOR SERVICES INCLUDING HOMEMAKING AND MEALS ON WHEELS. PATIENT DOES HAVE A LIFE LINE BRACELET THAT ALLOWS HER TO CALL 911 WHICH SHE DID IN THE PAST. SHE OFFERS NO COMPLAINTS OF PAIN INITIALLY DURING EVALUATION HOWEVER WITH DRESSING AND TRYING TO SHIFT HER BODY FORWARD TO GET INTO HER ARMPIT SHE DID COMPLAIN OF SOME PAIN 2/10 OF THAT LEFT UPPER EXTREMITY. PATIENT ALSO REQUIRED CUES ON PROPER LEAD DONNING NEW SL[place] POST SHOWER THE ABDOMINAL STRAP. PATIENT HAS NEIGHBORS THAT ARE ASSISTING WITH SHOPPING CLEANING AND MEALS AT THIS TIME. EDUCATION PROVIDED TO PATIENT ON HOW TO OBTAIN TUB SEAT AND SUCTION INDICATOR [employer] WILL NOT COVER THIS. PATIENT WILL LOOK INTO FOR NEXT VISIT. WILL BE CONTACTING ORTHOPEDICS FOR PROTOCOL UPDATE REGARDING LEFT SHOULDER RANGE OF MOTION AND STRENGTHENING. ASSESSMENT/POC: OCCUPATIONAL THERAPY EVALUATION COMPLETED WITH RECOMMENDATION FOR SKILLED OT TO ADDRESS ADL FUNCTION, IADL SKILLS, AND PAIN MANAGEMENT/RANGE OF MOTION LEFT UPPER EXTREMITY STATUS POST REVERSE TOTAL SHOULDER PROCEDURE. PATIENT IN AGREEMENT WITH PLAN. MD NOTIFIED OF OT EVALUATION AND PLAN OF CARE ] Goal 2024-06-24 Patient Goal - FOR ARM TO HE AL Goal Provider Goal - A PLAN OF CARE WILL BE ESTABLISHED THAT MEETS PATIENT'S CUSTODIAL NEEDS AND INCLUDES PATIENT GOAL FOR HOME HEALTH. Goal Provider Goal - PATIENT/CAREGIVER WILL VERBALIZE UNDERSTANDING OF EDUCATION PROVIDED ON MEDICATIONS BY THE END OF THE CERTIFICATION PERIOD. Goal Provider Goal - PATIENT/CAREGIVER WILL VERBALIZE/DEMONSTRATE MANAGEMENT OF CARDIAC DISEASE PROCESS AND EXACERBATIONS WILL BE IDENTIFIED AND PROMPTLY REPORTED THROUGHOUT THE CERTIFICATION PERIOD. Goal Provider Goal - OCCUPATIONAL THERAPY EVALUATION TO BE COMPLETED WITH RECOMMENDATIONS AND WRITTEN PLAN OF TREATMENT ESTABLISHED FOR THE PHYSICIANS SIGNATURE. Goal Provider Goal - CHANGES IN NEUROLOGIC STATUS WILL BE IDENTIFIED AND REPORTED TO THE PHYSICIAN FOR PROMPT INTERVENTION OF ASSOCIATED RISK. PATIENT/CAREGIVER WILL VERBALIZE/DEMONSTRATE APPROPRIATE SAFETY MEASURES TO PREVENT INJURY BY THE END OF THE CERTIFICATION PERIOD. Goal Provider Goal - PATIENT/CAREGIVER WILL VERBALIZE/DEMONSTRATE THE ABILITY TO MANAGE CIRCULATORY DISEASE PROCESS AND EXACERBATIONS WILL BE IDENTIFIED FOR EARLY INTERVENTION THROUGHOUT THE CERTIFICATION PERIOD. Goal Provider Goal - A PHYSICAL THERAPY EVALUATION TO BE COMPLETED WITH RECOMMENDATIONS AND/OR WRITTEN PLAN OF TREATMENT ESTABLISHED FOR PHYSICIANS SIGNATURE. Goal Provider Goal - PATIENT/CAREGIVER WILL VERBALIZE UNDERSTANDING OF SIGNS AND SYMPTOMS, COMPLICATIONS, AND MANAGEMENT OF ATRIAL FIBRILLATION THROUGHOUT THE CERTIFICATION PERIOD. Goal Provider Goal - PATIENT/CAREGIVER WILL VERBALIZE SIGNS AND SYMPTOMS OF HYPERTENSION AND WILL BE ABLE TO DEMONSTRATE ABILITY TO MANAGE EXACERBATION BY END OF THE EPISODE. Goal Provider Goal - PATIENT/CAREGIVER WILL VERBALIZE/DEMONSTRATE UNDERSTANDING OF TEACHING RELATED TO ALTERED SKIN INTEGRITY BY END OF CERTIFICATION PERIOD. Goal Provider Goal - PATIENT/CAREGIVER WILL VERBALIZE/DEMONSTRATE KNOWLEDGE AND MANAGEMENT OF COPD BY END OF EPISODE. Goal Provider Goal - PATIENT/CAREGIVER WILL VERBALIZE UNDERSTANDING OF MUSCULOSKELETAL DISEASE INCLUDING SIGNS AND SYMPTOMS, MANAGEMENT, AND PRESCRIBED TREATMENT REGIMEN BY END OF EPISODE. Goal Provider Goal - PATIENT/CAREGIVER WILL UTILIZE VIRTUAL VISITS TO ACHIEVE GOALS OUTLINED ON THE PLAN OF CARE. PATIENT WILL HAVE SUPPORT MEASURES ESTABLISHED TO PREVENT HOSPITALIZATION AND PATIENT/CAREGIVER WILL VERBALIZE/DEMONSTRATE METHODS TO REDUCE AVOIDABLE HOSPITALIZATION THROUGHOUT THE CERTIFICATION PERIOD. Goal Provider Goal - PATIENT WILL HAVE SUPPORT MEASURES ESTABLISHED TO PREVENT HOSPITALIZATION AND ED USE AND PATIENT/CAREGIVER WILL VERBALIZE/DEMONSTRATE METHODS TO REDUCE AVOIDABLE HOSPITALIZATION AND ED USE BY END OF EPISODE. Goal Provider Goal - PATIENT/CAREGIVER WILL VERBALIZE UNDERSTANDING OF DISCHARGE PLANNING INSTRUCTIONS BY DATE OF DISCHARGE. Goal Provider Goal - PATIENT/CAREGIVER WILL VERBALIZE/DEMONSTRATE EFFECTIVE HOME SAFETY AND FALL PREVENTION STRATEGIES THROUGHOUT CERTIFICATION PERIOD. Goal Provider Goal - PATIENT/CAREGIVER WILL DEMONSTRATE UNDERSTANDING OF PHARMACOLOGIC AND NONPHARMACOLOGIC PAIN CONTROL MEASURES AND PATIENT WILL HAVE IMPROVEMENT IN PAIN INTERFERING WITH ACTIVITY EVIDENCED BY PAIN CONTROLLED AT LEVEL OF 7 OR LESS BY END OF CERTIFICATION PERIOD. Goal Provider Goal - PATIENT/CAREGIVER WILL VERBALIZE UNDERSTANDING OF PRESSURE ULCER PREVENTION BY END OF THE EPISODE. Goal Provider Goal - NONE Goal Provider Goal - OCCUPATIONAL THERAPIST TO EVALUATE PATIENT SECONDARY TO FUNCTIONAL DEFICITS/SAFETY CONCERNS IDENTIFIED DURING EVALUATION. PATIENT/CAREGIVER WILL PERFORM THERAPEUTIC EXERCISE/S AND DEMONSTRATE PARTICIPATION IN A HOME PROGRAM. PATIENT/CAREGIVER WILL DEMONSTRATE SAFE TRANSFERS USING APPROPRIATE ASSISTIVE DEVICE, BODY MECHANICS AND EQUIPMENT. CAREGIVER/PATIENT WILL DEMONSTRATE/VERBALIZE UNDERSTANDING OF RECOMMENDATIONS TO INCREASE SAFETY IN THE HOME AND FALL PREVENTION. PATIENT/CAREGIVER WILL DEMONSTRATE IMPROVED ABILITY TO PERFORM ACTIVITIES OF DAILY LIVIN, PARTICULARLY SHOWER LEVEL BATHING AND TUB TRANSFER. Reason for Visit INDEPENDENT IN THE COMMUNITY Encounters Start Date/Time End Date/Time Encounter Type Admission Type Attending [facility] Department Encounter ID Discharge Date Discharge Status Discharge Condition Discharge Reason Percent Goals Met 2024-05-09 00:00:00 2024-06-24 00:00:00 Outpatient CHRISTINA ANDERSON [facility] [id number] 2024-06-24 00:00:00 DISCHARGE TO HOME OR SELF CARE [facility]DEPENDEN T IN THE COMMUNITY GOALS MET ( ONLY) 90.24
--- NOTE | 2024-08-14 12:49 | A.OFFPC_ITS ---
Vital Signs 08/14/24 12:52 Height 5 ft 6 in Weight 190 lb BMI 30.7 BP 110/68 Blood Pressure Location Rt brachial Position Sitting Pulse 93 Pulse Source Pulse Oximeter Pulse Oximetry (%) 99 Oxygen Delivery Method Room Air Intake Visit Reasons: Follow up Intake Note: Pt is here today for a follow up visit. Pt states that she has a rash under her breasts. Allergies No Known Allergies Allergy (Verified 08/14/24 12:52) Medication List - Last Reconciled 08/14/24 by Payal Marroquin MD albuterol sulfate 90 mcg/actuation 2 puffs inhalation Q6H PRN amlodipine 5 mg PO DAILY apixaban 5 mg PO BID ascorbic acid (vitamin C) PO escitalopram oxalate 5 mg PO DAILY ketoconazole 2% 1 appl topical BID lovastatin 20 mg PO DAILY metoprolol succinate ER 25 mg PO DAILY nystatin 1 appl topical BID Trelegy Ellipta 100-62.5-25 mcg (fuueyvnbicy-cokcmqhfa-uzsxxtfj) 1 inh inhalation DAILY NS triamcinolone acetonide 0.1% 1 appl topical BID-TID vit [id number] 148-87-20-40 mg (Bioflex) tabs PO Tobacco use date assessed: 05/30/24 Dental Screening Dental Screen Date: 02/21/24 HPI Follow up HPI Details Patient presents for the follow-up on hypertension persistent AFib COPD hyperlipidemia, stable on current medications. She recovered from left shoulder replacement surgery [facility] Medical History Chronic bronchitis Annual physical exam Mid-back pain, acute Pulmonary embolism IBS (irritable bowel syndrome) COPD (chronic obstructive pulmonary disease) Lyme disease HTN (hypertension) Surgical History History of shoulder surgery History of left knee replacement S/P partial colectomy Family History Father Cancer Mother Myocardial infarct CVD (cardiovascular disease) Social History Housing: House Patient Tobacco Use Status: Former Tobacco user e-Cigarette/Vaping Use: Never Used service: No Current occupational status: retired Cognitive needs: No Hearing needs: No Vision needs: Yes Questionnaire Thrive Questionnaire Date Thrive assessed: 02/21/24 CAESAR-7 AMB Questionnaire CAESAR-7 Date CAESAR - 7 assessed: 02/21/24 Source: Developed by Drs. Dany Alvarez, Bobbi Rivera, Maged Hudson and colleagues, with an educational iris from [employer]. Review of Systems Const All systems reviewed & are unremarkable except as noted in HPI and below Eyes Reports no additional complaints ENT Reports no additional complaints Card Reports no additional complaints Resp Reports no additional complaints GI Reports no additional complaints Reports no additional complaints Physical exam (Primary Care) Vital Signs: Last Vital Signs Pulse 93 08/14/24 12:52 BP 110/68 08/14/24 12:52 Pulse Ox 99 08/14/24 12:52 Oxygen Delivery Method Room Air 08/14/24 12:52 BMI result Body Mass Index 30.7 Tobacco/Smoking Status: Tobacco use Status Tobacco use date assessed 05/30/24 08/14/24 12:50 Patient Tobacco Use Status Former Tobacco user 08/14/24 12:50 e-Cigarette/Vaping Use Never Used 08/14/24 12:50 Thrive Assessment: Date of Thrive Assessment Date Thrive assessed 02/21/24 08/14/24 12:50 Const General: no acute distress HENMT Head: Yes normal to inspection Ears: hearing grossly normal bilaterally Mouth: Normal oral and palatal mucosa present Throat: Yes posterior oropharynx normal Eyes General: appearance normal, both eyes and all related structures Neck Neck: Yes no lymphadenopathy and Yes supple Resp Effort & Inspection: normal respiratory effort Auscultation: clear to auscultation bilaterally Cardio Rhythm: regular rhythm Heart sounds: S1 normal heart sound present and S2 normal heart sound present GI Inspection: Yes normal to inspection Palpation (GI): Soft to palpation Coding Level of Care Code Est Pt Level 4 (45609) Diagnoses HTN (hypertension) I10 Mixed hyperlipidemia E78.2 Vitamin D deficiency E55.9 COPD (chronic obstructive pulmonary disease) J44.9 A-fib I48.91 Assessment & Plan Assessment & Plan (1) HTN (hypertension): Code(s): I10 - Essential (primary) hypertension Category: Medical Plan: Continue current medications (2) Mixed hyperlipidemia: Code(s): E78.2 - Mixed hyperlipidemia Category: Medical Plan: Continue statin (3) Vitamin D deficiency: Code(s): E55.9 - Vitamin D deficiency, unspecified Category: Medical Plan: Continue vitamins (4) COPD (chronic obstructive pulmonary disease): Code(s): J44.9 - Chronic obstructive pulmonary disease, unspecified Category: Medical Plan: Continue Trelegy (5) A-fib: Comment: On metoprolol and Eliquis Code(s): I48.91 - Unspecified atrial fibrillation Category: Medical Plan: Continue current medications follow-up in 7 months with a fasting labs before Orders: Orders Complete Blood Count Auto Diff 7 Months E55.9 - Vitamin D deficiency, unspecified, E78.2 - Mixed hyperlipidemia, I10 - Essential (primary) hypertension, I48.91 - Unspecified atrial fibrillation, J44.9 - Chronic obstructive pulmonary disease, unspecified TSH reflex Free T4 7 Months E55.9 - Vitamin D deficiency, unspecified, E78.2 - Mixed hyperlipidemia, I10 - Essential (primary) hypertension, I48.91 - Unspecified atrial fibrillation, J44.9 - Chronic obstructive pulmonary disease, unspecified Vitamin D 25-OH Total 7 Months E55.9 - Vitamin D deficiency, unspecified, E78.2 - Mixed hyperlipidemia, I10 - Essential (primary) hypertension, I48.91 - Unspecified atrial fibrillation, J44.9 - Chronic obstructive pulmonary disease, unspecified Comprehensive [place]. Panel Fast 7 Months E55.9 - Vitamin D deficiency, unspeci fied, E78.2 - Mixed hyperlipidemia, I10 - Essential (primary) hypertension, I48.91 - Unspecified atrial fibrillation, J44.9 - Chronic obstructive pulmonary disease, unspecified Lipid Panel 7 Months E55.9 - Vitamin D deficiency, unspecified, E78.2 - Mixed hyperlipidemia, I10 - Essential (primary) hypertension, I48.91 - Unspecified atrial fibrillation, J44.9 - Chronic obstructive pulmonary disease, unspecified
[2024-08-14 12:52] VITALS: BP 110/68; PULSE 93; O2SAT 99; BMI 30.7
== END 2024-08-14 15:38 | disposition home or self-care (01) ==
PROVIDERS: PCP Internal Medicine; Visit Provider Internal Medicine
DX: I10 Essential (primary) hypertension (principal); J44.9 Chronic obstructive pulmonary disease, unspecified; I48.91 Unspecified atrial fibrillation; E78.2 Mixed hyperlipidemia; E55.9 Vitamin D deficiency, unspecified

== ENCOUNTER → 2024-08-14 12:41 | Outpatient (BNVA) | payer MEDICARE, OTHER, SELFPAY | PROVIDERS: PCP Internal Medicine; Visit Provider Internal Medicine | DX: I10 Essential (primary) hypertension (principal); E78.2 Mixed hyperlipidemia; E55.9 Vitamin D deficiency, unspecified; J44.9 Chronic obstructive pulmonary disease, unspecified; I48.91 Unspecified atrial fibrillation | CPT/HCPCS: 99212 ==

== ENCOUNTER 2025-02-07 09:27 | Outpatient (AMB) | payer MEDICARE, OTHER, SELFPAY ==
--- NOTE | 2025-02-07 09:34 | AM.OFFWIN_ITS ---
Intake Vital Signs 02/07/25 09:44 Weight 191 lb BP 114/70 Blood Pressure Location Lt brachial Position Sitting Pulse 87 Pulse Source Pulse Oximeter Temp 98 F Temp Source Oral Pulse Oximetry (%) 98 Oxygen Delivery Method Room Air Intake Visit Reasons: EP Vaginal itching Intake Note: Patient here for vaginal itching that has been going on for over 2 weeks. Patient Tobacco Use Status: Former Tobacco user Allergies No Known Allergies Allergy (Verified 02/07/25 09:43) Do you need a note to return to daycare/school/sports/work: No HPI HPI Comments History of Present Illness Details This is an 80-year-old female presenting for evaluation of vaginal itching that she has had for the past 2 weeks. Patient has used Monistat onto nonconsecutive days and a single dose of fluconazole 3 days ago. Patient states that she continues to have vaginal itching without overt vaginal discharge, dysuria or urinary frequency. Patient also denies having any fevers, chills or abdominal pain. [facility] Medical History Chronic bronchitis Annual physical exam Mid-back pain, acute Pulmonary embolism IBS (irritable bowel syndrome) COPD (chronic obstructive pulmonary disease) Lyme disease HTN (hypertension) Surgical History History of shoulder surgery History of left knee replacement S/P partial colectomy Family History Father Cancer Mother Myocardial infarct CVD (cardiovascular disease) Social History Housing: House Patient Tobacco Use Status: Former Tobacco user e-Cigarette/Vaping Use: Never Used service: No Current occupational status: retired Cognitive needs: No Hearing needs: No Vision needs: Yes Review of Systems Const All systems reviewed & are unremarkable except as noted in HPI and below Reports no additional complaints Eyes Reports no additional complaints ENT Reports no additional complaints Card Reports no additional complaints Resp Reports no additional complaints GI Reports no additional complaints Reports no additional complaints, Denies hematuria, Reports genital pruritis, Denies dysuria, Denies urinary urgency, Denies vaginal discharge, Denies vaginal odor and Reports vaginal pruritus Musc Reports no additional complaints Skin/Breast Reports system reviewed and no additional complaints, except as documented Neuro Reports no additional complaints Psych Reports no additional complaints Endo Reports no additional complaints Jose Elias/Lymph Reports no additional complaints Aller/Immun Reports no additional complaints Physical Exam Vital Signs: Last Vital Signs Temp 98 F 02/07/25 09:44 Pulse 87 02/07/25 09:44 BP 114/70 02/07/25 09:44 Pulse Ox 98 02/07/25 09:44 Oxygen Delivery Method Room Air 02/07/25 09:44 Const General: cooperative, healthy appearing, comfortable, no acute distress, well developed, alert, awake and Physically active Nutritional Appearance: average body habitus Orientation/consciousness: patient oriented x3 Limitations: no limitations GI Palpation (GI): Soft to palpation and nontender General: Yes bladder normal to palpation External Female Exam: normal external appearance, No erythema, No externally tender and No external swelling Speculum Exam - Vagina: normal vaginal discharge, vagina atrophic (manual exam only; speculum exam deferred), No vaginal bleeding and tenderness Bimanual exam- vagina & uterus: bladder normal to palpation OB/external & speculum: No vaginal bleeding Manual OB Exam: Deferred manual OB exam Skin General skin exam: no rashes or lesions noted (no external lesions noted on the labia or perineum) Lesions: no lesions Rashes: no rashes Neuro General: patient oriented x3 Psych Appearance: grossly normal Mental Status: mental status grossly normal Insight: Good insight present (Psych) Judgement: Good judgement present (Psych) Results AMB Urinalysis, Automated UA Leukoctes 0 Jennifer/uL Last Edit by GUI Rascon on 02/07/25 10:16 UA Nitrite Negative Last Edit by Eliel Matson CCM on 02/07/25 10:16 UA Urobilinogen 0.2 mg/dL Last Edit by Eliel Matson CCM on 02/07/25 10:16 UA Protein 30 mg/dL Last Edit by Eliel Matson CCM on 02/07/25 10:16 UA pH 6.0 Last Edit by Eliel Matson CCM on 02/07/25 10:16 UA Blood 0 Mikael/uL Last Edit by Eliel Matson CCM on 02/07/25 10:16 UA Specific [place] 1.025 Last Edit by GUI Rascon on 02/07/25 10:16 UA Ketone Negative Last Edit by GUI Rascon on 02/07/25 10:16 UA Bilirubin 0 mg/dL Last Edit by GUI Rascon on 02/07/25 10:16 UA Glucose 0 mg/dL Last Edit by GUI Rascon on 02/07/25 10:16 Results Reviewed Results Reviewed: urinalysis reviewed Assessment & Plan Assessment & Plan (1) Vaginitis: Comment: BV panel ordered and pending; urinalysis not consistent with an acute UTI. Code(s): N76.0 - Acute vaginitis Qualifiers: Chronicity: acute Qualified Code(s): N76.0 - Acute vaginitis Plan: Diflucan 200 mg x 1. BV panel results pending at this time. Orders: Orders Bacterial Vaginosis Panel Today N76.0 - Acute vaginitis Medications: New fluconazole (Diflucan) 200 mg PO ONCE 1 tab 0RF Coding Level of Care Code Est Pt Level 4 (76547) Diagnoses Acute vaginitis N76.0 Chronicity: acute Time Spent (min) 25
[2025-02-07 09:44] VITALS: BP 114/70; PULSE 87; TEMP 36.6; O2SAT 98
--- OUTSIDE RECORDS SUMMARY | 2025-02-07 09:52 | XMS_ITS | Clinical Summary ---
Author Organization [facility] Address [address] [place] [address] Care Team Providers Care Clinic Lpn Name Role Phone Jas Breaux MD Primary Care Provider [phone] Allergies Active Allergy Reactions Criticality Noted Date Comments Hydromorphone 04/26/2018 Amlodipine 04/26/2018 Medications Medication Sig Dispensed Refills Start Date End Date Status amLODIPine (NORVASC) tablet 5 mg Take 5 mg by mouth daily. 0 Active ipratropium-albuterol (COMBIVENT RESPIMAT) 20-100 MCG/ACT inhaler Inhale 1 puff into the lungs 4 (four) times a day. 0 Active lovastatin (MEVACOR) 20 MG tablet Take 20 mg by mouth every night at bedtime. 0 Active vitamin B-12 (CYANOCOBALAMIN) tablet 1000 mcg Take 1,000 mcg by mouth daily. 0 Active Ascorbic Acid (VITAMIN C) 1000 MG tablet Take 1,000 mg by mouth daily. 0 Active cholecalciferol (VITAMIN D3) 1000 units tablet Take 1,000 Units by mouth daily. 0 Active Docusate Sodium (COLACE PO) Take by mouth. 0 Active doxycycline (ADOXA) 100 MG tablet Take 100 mg by mouth 2 (two) times a day. 0 Active tinidazole (TINDAMAX) 250 MG tablet Take 250 mg by mouth 2 (two) times a day. 0 Active Probiotic Product (PROBIOTIC PO) Take 1 capsule by mouth 2 (two) times a day. 0 Active SACCHAROMYCES BOULARDII PO Take by mouth. 0 Active Acetylcysteine (Q-FZQHOP-U-CYSTEINE PO) Take 700 mg by mouth. 0 Active warfarin (COUMADIN) 1 MG tablet Take 1 mg by mouth daily. 0 Active Active Problems No known active problems Family History Medical History Relation Name Comments Parkinsonism Brother Other Daughter 2 from unkno wn reasons Alzheimer's disease Father Deep vein thrombosis Mother Age unk nown, questionable history Heart attack Mother from heart attack Diverticulitis Sister Relation Name Status Comments Brother Daughter 1 Alive Daughter 2 Father Mother Sister Alive Social History Tobacco Use Types Packs/Day Years Used Date Smoking Tobacco: Former Cigarettes 1 20 Q uit: 10/26/2016 Smokeless Tobacco: Never Alcohol Use Standard Drinks/Week Comments Yes 2 (1 standard drink = 0.6 oz pur e alcohol) Sex and Gender Information Value Date Recorded Sex Assigned at Not on file Gender Identity Not on file Sexual Orientation Not on file Last Filed Vital Signs Vital Sign Reading Time Taken Comments Blood Pressure 129/78 04/27/2018 11:14 AM EDT Pulse 65 04/27/2018 11:14 AM EDT Temperature - - Respiratory Rate - - Oxygen Saturation - - Inhaled Oxygen Concentration - - Weight 85.3 kg (188 lb) 04/27/2018 11:14 AM EDT Height 167.6 cm (5' 6 ) 04/27/2018 11:14 AM EDT Body Mass Index 30.34 04/27/2018 11:14 AM EDT Plan of Treatment Health Maintenance Due Date Last Done Comments Hepatitis C Screening 1945 COVID-19 Vaccine (#1) 1945 Depression Screening 1957 Preventative Health Evaluation 1963 DTap / Tdap / Td (1 - Tdap) 02/06/1964 Shingrix-Zoster Vaccine (1 of 2) 1995 Fall Risk Assessment 2010 Osteoporosis Screening (DEXA Scan) 2010 Pneumococcal Vaccine (1 of 1 - PCV) 2010 RSV Adult > 60+ Yrs or Pregn ant (1 - 1-dose 75+ series) 02/06/2020 Influenza Vaccine (Season Ended) 2025 Hepatitis B Vaccines Aged Out No long er eligible based on patient's age to complete this topic RSV Ped < 20 months Aged Out No longe r eligible based on patient's age to complete this topic Care Teams Clinic Lpn Relationship Specialty Start Date End Date Jas Breaux MD [address] [place] [address] PCP - General Internal Medicine 04/12/18
== END 2025-02-07 10:12 | disposition home or self-care (01) ==
PROVIDERS: PCP Internal Medicine; Visit Provider Physician Assistant
DX: N76.0 Acute vaginitis (principal); Z13.9 Encounter for screening, unspecified

== ENCOUNTER 2025-02-07 09:27 | Outpatient (REF) | payer MEDICARE, OTHER, SELFPAY ==
[2025-02-07 14:28] LABS: Bacterial Vaginosis PCR POSITIVE (Negative); Candida Group PCR NOT DETECTED (Not Detect); Candida glab krusei PCR NOT DETECTED (Not Detect); Trichomonas vaginalis PCR NOT DETECTED (Not Detect)
== END 2025-02-07 09:28 | disposition home or self-care (01) ==
LOC: HO.LAB 09:27
PROVIDERS: Physician Assistant; PCP Internal Medicine
DX: N76.0 Acute vaginitis (principal)
CPT/HCPCS: 81003; 81515; 99212

== ENCOUNTER 2025-02-12 13:37 | Outpatient (AMB) | payer MEDICARE, OTHER, SELFPAY ==
[2025-02-12 13:54] VITALS: BP 126/88; PULSE 93; TEMP 36.6; O2SAT 98; BMI 30.8
--- NOTE | 2025-02-12 13:54 | AM.OFFWIN_ITS ---
Intake Vital Signs 02/12/25 13:54 Height 5 ft 6 in Weight 191 lb BMI 30.8 BP 126/88 Blood Pressure Location Lt brachial Position Sitting Pulse 93 Pulse Source Pulse Oximeter Temp 97.9 F Temp Source Oral Pulse Oximetry (%) 98 Oxygen Delivery Method Room Air Intake Visit Reasons: PE Vaginal itching still Intake Note: Pt presents to the office today for c/o vaginal itching,burning x2 weeks. Pt was seen at the walk in on Monday was given medications for bacterial vaginosis. Patient Tobacco Use Status: Former Tobacco user Allergies No Known Allergies Allergy (Verified 02/12/25 13:57) HPI HPI Comments History of Present Illness Details History of Present Illness - The patient is an 80-year-old female p resenting with vaginal pruritus. - She reports two weeks of vaginal itchi ng and was diagnosed with bacterial vaginosis, treated with metronidazole. - Despite treatment, itching persists, a nd she has taken two doses of diflucan. - The itching is vaguely located near he r labia, with no urinary symptoms or fever reported. - No abnormal vaginal discharge is noted today. Physical Exam General: Cooperative, healthy appearing, comfortable, no acute distress and well developed Orientation: Patient oriented x3 Limitations: No limitations Head: Normal to inspection Ears: Hearing grossly normal bilaterally Nose: Normal External nose present Face and sinus: Normal facial exam Eyes: Appearance normal, both eyes and all related structures Neck: Normal visual inspection and Yes full ROM Respiratory: Normal respiratory effort and able to speak in complete sentences. Skin: No rashes or lesions noted Neuro: Patient oriented x3 Extremities: Normal to inspection [facility] Medical History Chronic bronchitis Annual physical exam Mid-back pain, acute Pulmonary embolism IBS (irritable bowel syndrome) COPD (chronic obstructive pulmonary disease) Lyme disease HTN (hypertension) Surgical History History of shoulder surgery History of left knee replacement S/P partial colectomy Family History Father Cancer Mother Myocardial infarct CVD (cardiovascular disease) Social History Housing: House Patient Tobacco Use Status: Former Tobacco user e-Cigarette/Vaping Use: Never Used service: No Current occupational status: retired Cognitive needs: No Hearing needs: No Vision needs: Yes Review of Systems Const All systems reviewed & are unremarkable except as noted in HPI and below Physical Exam Vital Signs: Last Vital Signs Temp 97.9 F 02/12/25 13:54 Pulse 93 02/12/25 13:54 BP 126/88 02/12/25 13:54 Pulse Ox 98 02/12/25 13:54 Oxygen Delivery Method Room Air 02/12/25 13:54 BMI result Body Mass Index 30.8 Const General: cooperative, healthy appearing, comfortable, no acute distress and well developed Orientation/consciousness: patient oriented x3 Limitations: no limitations HEENT Head: Yes normal to inspection Ears: hearing grossly normal bilaterally General nose exam: Normal external nose present Face and sinus: Yes normal facial exam Eyes General: appearance normal, both eyes and all related structures Neck Neck: Yes normal visual inspection and Yes full ROM Resp Effort & Inspection: normal respiratory effort and able to speak in complete sentences GI Rectal Exam - Female: Visual inspection abnormal (slight erythema ) External Female Exam: normal external appearance, normal appearance of the urethra and erythema (labia with slight edema ) Skin General skin exam: no rashes or lesions noted Neuro General: patient oriented x3 Extrem General: Yes normal to inspection Results AMB Urinalysis, Automated UA Leukoctes 70 Jennifer/uL Last Edit by Norma Blas CMA on 02/12/25 14:32 UA Nitrite Negative Last Edit by Norma Blas CMA on 02/12/25 14:32 UA Urobilinogen 0.2 mg/dL Last Edit by Norma Blas CMA on 02/12/25 14:32 UA Protein 300 mg/dL Last Edit by Norma Blas CMA on 02/12/25 14:32 UA pH 6.0 Last Edit by Norma Blas CMA on 02/12/25 14:32 UA Blood 0 Mikael/uL Last Edit by Norma Blas CMA on 02/12/25 14:32 UA Specific Randolph 1.025 Last Edit by Norma Blas CMA on 02/12/25 14:32 UA Ketone Positive Last Edit by Norma Blas CMA on 02/12/25 14:32 UA Bilirubin 1 mg/dL Last Edit by Norma Blas CMA on 02/12/25 14:32 UA Glucose 0 mg/dL Last Edit by Norma Blas CMA on 02/12/25 14:32 Assessment & Plan Assessment & Plan (1) Vaginitis and vulvovaginitis: Code(s): N76.0 - Acute vaginitis Plan: Recommended patient continue to take the metronidazole as prescribed, she has 2 days of treatment left. Also I did send in ketoconazole cream for relief of vaginal itching as upon exam she did have some erythema and dryness on the labia extending to the anus. Orders: Orders AMB Urinalysis Automated Today Z13.9 - Encounter for screening, unspecified Urine Culture Today N39.0 - Urinary tract infection, site not specified Medications: New ketoconazole 2% 1 appl topical BID 30 grams 0RF Coding Level of Care Code Est Pt Level 3 (94363) Diagnoses Vaginitis and vulvovaginitis N76.0
--- OUTSIDE RECORDS SUMMARY | 2025-02-12 15:37 | XMS_ITS | Clinical Summary ---
Author Organization [facility] Address [address] [place] [address] Care Team Providers Care Birthing Nurse Name Role Phone Jas Breaux MD Primary Care Provider [phone] Allergies Active Allergy Reactions Criticality Noted Date [...] PO Take by mouth. 0 Active Acetylcysteine (F-LAOYZX-X-CYSTEINE PO) Take 700 mg by mouth. 0 [...] Health Maintenance Due Date Last Done Comments COVID-19 Vaccine (#1) 1945 Depression Screening 1957 [...] age to complete this topic Care Teams Birthing Nurse Relationship Specialty Start Date End Date Jas Breaux MD [address] [place] [address] PCP - General Internal Medicine 04/12/18
== END 2025-02-12 14:54 | disposition home or self-care (01) ==
PROVIDERS: PCP Internal Medicine; Visit Provider Physician Assistant
DX: N76.0 Acute vaginitis (principal); Z13.9 Encounter for screening, unspecified

== ENCOUNTER 2025-02-12 14:33 | Outpatient (REF) | payer MEDICARE, OTHER, SELFPAY | END 2025-02-12 14:34 | disposition home or self-care (01) | LOC: HO.LAB 14:33 | PROVIDERS: Visit Provider Physician Assistant | DX: N39.0 Urinary tract infection, site not specified (principal); N76.0 Acute vaginitis | CPT/HCPCS: 81003; 87086; 99212 ==

== ENCOUNTER 2025-02-18 13:24 | Outpatient (AMB) | payer MEDICARE, OTHER, SELFPAY ==
--- NOTE | 2025-02-18 13:37 | MHC.PC.OV ---
Vital Signs 02/18/25 13:38 Height 5 ft 6 in Weight 183 lb BMI 29.5 BP 122/76 Blood Pressure Location Lt brachial Position Sitting Respiration 18 Pulse 77 Pulse Source Pulse Oximeter Temp 98.2 F Temp Source Oral Pulse Oximetry (%) 96 Oxygen Delivery Method Room Air Intake Visit Reasons: Follow up after walk in Intake Note: Pt is here today for a follow up visit after being seen in a walk in. Pt states that she thinks she has yeast infection. Allergies No Known Allergies Allergy (Verified 02/18/25 13:40) Medication List - Last Reconciled 02/18/25 by Payal Marroquin MD albuterol sulfate 90 mcg/actuation 2 puffs inhalation Q6H PRN amlodipine 5 mg PO DAILY apixaban 5 mg PO BID escitalopram oxalate 5 mg PO DAILY ketoconazole 2% 1 appl topical BID ketoconazole 2% 1 appl topical BID lovastatin 20 mg PO DAILY metoprolol succinate ER 25 mg PO DAILY nystatin 1 appl topical BID Trelegy Ellipta 100-62.5-25 mcg (modvsvxhkxz-qppfyzdqa-rsrksira) 1 inh inhalation DAILY NS triamcinolone acetonide 0.1% 1 appl topical BID-TID vit V-gparvys-ywef-rutin-hb196 538-66-64-40 mg (Bioflex) tabs PO Tobacco use date assessed: 05/30/24 Fall risk assessment: No Falls in past year Last assessed Fall Risk: 02/18/25 Dental Screening Dental Screen Date: 02/18/25 Did you have a dental visit in the last 12 months?: Yes Did you have a dental problem in the last 6 months where you did not have access to dental care?: No Was dental information given to patient?: Patient has dentist HPI Follow up after walk in HPI Details Patient reports vulvar pruritus for a few weeks. She denies vaginal discharge. patient was treated with Diflucan, metronidazole for positive BV and ketoconazole cream without relief. She denies dysuria pelvic pain fever chills. She denies using any new laundry detergent or soaps. [facility] Medical History Chronic bronchitis Annual physical exam Mid-back pain, acute Pulmonary embolism IBS (irritable bowel syndrome) COPD (chronic obstructive pulmonary disease) Lyme disease HTN (hypertension) Surgical History History of shoulder surgery History of left knee replacement S/P partial colectomy Family History Father Cancer Mother Myocardial infarct CVD (cardiovascular disease) Social History Housing: House Patient Tobacco Use Status: Former Tobacco user e-Cigarette/Vaping Use: Never Used service: No Current occupational status: retired Cognitive needs: No Hearing needs: No Vision needs: Yes Questionnaire PHQ-9 Over the last 2 weeks, how often have you been bothered by any of the following problems? 1. Little interest or pleasure in doing things: not at all 2. Feeling down, depressed, or hopeless: not at all 3. Trouble falling or staying asleep, or sleeping too much: not at all 4. Feeling tired or having little energy: several days 5. Poor appetite or overeating: several days 6. Feeling bad about yourself - or that you are a failure or have let yourself or your family down: not at all 7. Trouble concentrating on things, such as reading the newspaper or watching television: not at all 8. Moving or speaking so slowly that other people could have noticed. Or the opposite - being so fidgety or restless that you have been moving around a lot more than usual: not at all 9. Thoughts that you would be better off or of hurting yourself in some way: not at all Total score: 2 Depression Screening Interpretation: Negative Depression Screening Done: Yes 24357 - PHQ-9 Billing: Yes Source: Developed by Drs. Dany Alvarez, Bobbi Rivera, Maged Hudson and colleagues, with an educational iris from [employer]. Thrive Questionnaire Date Thrive assessed: 02/18/25 I am a: Patient What is your living situation today?: I have a steady place to live Within the past 12 months, did the food you bought not last and you didn't have the money to get more?: Never true Within the past 12 months, did you worry whether your food would run out before you got money to buy more?: Never true Do you have trouble paying for medicines?: No Do you have trouble getting transportation to medical appointments?: No Do you have trouble paying your heating and electricity bill?: No Do you have trouble taking care of your child, family member or friend?: No Do you have trouble with day-to-day activities such as bathing, preparing meals, shopping, managing finances, etc.?: No Are you currently unemployed and looking for a job?: No Are you interested in more education?: No Please select the resources that you would like help with: None THRIVE Score: 0 AUDIT C Alcohol Use Questionnaire (AUDIT-C) 1. How often do you have a drink containing alcohol?: Never 3. How often do you have six or more drinks on one occasion?: Never Total Score: 0 CAESAR-7 AMB Questionnaire CAESAR-7 Date CAESAR - 7 assessed: 02/18/25 Feeling nervous, anxious, or on edge: 0 = Not at all Not being able to stop or control worryin = Not at all Worrying too much about different things: 0 = Not at all Trouble relaxin = Not at all Being so restless that it is hard to sit still: 0 = Not at all Becoming easily annoyed or irritable: 0 = Not at all Feeling afraid as if something awful might happen: 0 = Not at all Total CAESAR-7 score (0-4 normal; 5-9 mild; 10-14 moderate; 15-21 severe): 0 Source: Developed by Drs. Dany Alvarez, Bobbi Rivera, Maged Hudson and colleagues, with an educational iris from [employer]. CAESAR-7 Assessment Billing CAESAR-7 Assessment Tool: CAESAR-7 Assessment 31913 Review of Systems Const All systems reviewed & are unremarkable except as noted in HPI and below ENT Reports no additional complaints Card Reports no additional complaints Resp Reports no additional complaints GI Reports no additional complaints Reports no additional complaints Physical exam (Primary Care) Vital Signs: Last Vital Signs Temp 98.2 F 02/18/25 13:38 Pulse 77 02/18/25 13:38 Resp 18 02/18/25 13:38 BP 122/76 02/18/25 13:38 Pulse Ox 96 02/18/25 13:38 Oxygen Delivery Method Room Air 02/18/25 13:38 BMI result Body Mass Index 29.5 Tobacco/Smoking Status: Tobacco use Status Tobacco use date assessed 05/30/24 02/18/25 13:43 Patient Tobacco Use Status Former Tobacco user 02/18/25 13:43 e-Cigarette/Vaping Use Never Used 02/18/25 13:43 PHQ-9: PHQ-9 Score PHQ-9: Total score 2 02/18/25 13:43 Depression Screening Interpretation: Negative Thrive Assessment: Date of Thrive Assessment Date Thrive assessed 02/18/25 02/18/25 13:43 Const General: no acute distress HENMT Head: Yes normal to inspection Resp Auscultation: clear to auscultation bilaterally Cardio Rhythm: regular rhythm Heart sounds: S1 normal heart sound present and S2 normal heart sound present External Female Exam: normal external appearance, normal appearance of the urethra and No lesion Speculum Exam - Vagina: normal appearance of the vagina and normal vaginal discharge Coding Level of Care Code Est Pt Level 3 (20856) Diagnoses Vulvar pruritus L29.2 HTN (hypertension) I10 Additional Codes CAESAR-7 Assessment Billing - CAESAR-7 Assessment Tool: CAESAR-7 Assessment 91334 ([id number]) PHQ-9 - 17999 - PHQ-9 Billing: Yes ([id number]) Assessment & Plan Assessment & Plan (1) Vulvar pruritus: Code(s): L29.2 - Pruritus vulvae Category: Medical Plan: Patient was advised to use mild laundry detergent and milder body soaps. Lotrisone cream is prescribed for 1 week (2) HTN (hypertension): Code(s): I10 - Essential (primary) hypertension Category: Medical Plan: Continue current medications Medications: New clotrimazole-betamethasone 1-0.05 % for 1 week 1 appl topical BID 15 grams 0RF
[2025-02-18 13:38] VITALS: BP 122/76; PULSE 77; RESP 18; TEMP 36.8; O2SAT 96; BMI 29.5
== END 2025-02-18 14:15 | disposition home or self-care (01) ==
LOC: HO.HMCC 13:25
PROVIDERS: PCP Internal Medicine; Visit Provider Internal Medicine
DX: L29.2 Pruritus vulvae (principal); I10 Essential (primary) hypertension

== ENCOUNTER → 2025-02-18 13:24 | Outpatient (BNVA) | payer MEDICARE, OTHER, SELFPAY | PROVIDERS: PCP Internal Medicine; Visit Provider Internal Medicine | DX: L29.2 Pruritus vulvae (principal); I10 Essential (primary) hypertension | CPT/HCPCS: 96127; 99212 ==

== ENCOUNTER 2025-03-14 09:59 | Outpatient (REF) | payer MEDICARE, OTHER, SELFPAY ==
--- OUTSIDE RECORDS SUMMARY | 2025-03-14 10:18 | XMS_ITS | Clinical Summary ---
Author Organization [facility] Address [address] [place] [address] Care Team Providers Care Service Desk Director Name Role Phone Jas Breaux MD Primary Care Provider [phone] Allergies Active Allergy Reactions Criticality Noted Date [...] PO Take by mouth. 0 Active Acetylcysteine (B-VNQIIZ-U-CYSTEINE PO) Take 700 mg by mouth. 0 [...] - 1-dose 75+ series) 02/06/2020 Influenza Vaccine (#1) 2025 Hepatitis B Vaccines Aged Out No long er eligible based on patient's age to complete this topic RSV Ped < 20 months Aged Out No longe r eligible based on patient's age to complete this topic Care Teams Service Desk Director Relationship Specialty Start Date End Date Jas Breaux MD [address] [place] [address] PCP - General Internal Medicine 04/12/18
--- OUTSIDE RECORDS SUMMARY | 2025-03-14 10:18 | XMS_ITS | Clinical Summary ---
Author Organization [employer] [facility] Address [id number] [place] [id number] Care Team Providers Care Forensic Document Examiner Name Role Phone Payal Marroquin MD Primary Care Provider [phone] Social History Tobacco Use Types Packs/Day Years Used Date Smoking Tobacco: Every Day Smokeless Tobacco: Never Alcohol Use Standard Drinks/Week Comments Yes 0 (1 standard drink = 0.6 oz pur e alcohol) Comments Unknown Sex and Gender Information Value Date Recorded Sex Assigned at Not on file Legal Sex Female 10:07 AM EST Gender Identity Not on file Sexual Orientation Not on file Obstetrics History Last Filed Vital Signs Vital Sign Reading Time Taken Comments Blood Pressure - - Pulse - - Temperature - - Respiratory Rate - - Oxygen Saturation - - Inhaled Oxygen Concentration - - Weight 88.5 kg (195 lb) 06/07/2022 11:29 AM EDT Height 167.6 cm (5' 6 ) 06/07/2022 11:29 AM EDT Body Mass Index 31.47 06/07/2022 11:29 AM EDT Plan of Treatment Health Maintenance Due Date Last Done Comments DTaP,Tdap,and Td Vaccines (1 - Tdap) 02/06/1964 Pneumococcal Vaccine: 50+ Ye ars (1 of 2 - PCV) 02/06/1964 Zoster Vaccines (1 of 2) 1995 RSV Immunization Adult Patie nts (1 - 1-dose 75+ series) 02/06/2020 Depression Screening 07/26/2022 Falls Risk Assessment 07/26/2022 Osteoporosis Screening (Bone Density Screening) 07/26/2022 Social Influencers of Health Screening 07/26/2022 COVID-19 Vaccine (1 - 2023-2 5 season) 2024 Influenza Vaccine (#1) 2025 HIB Vaccines Aged Out No longer eligi ble based on patient's age to complete this topic HPV Vaccines Aged Out No longer eligi ble based on patient's age to complete this topic Hepatitis A Vaccines Aged Out No long er eligible based on patient's age to complete this topic Hepatitis B Vaccines Aged Out No long er eligible based on patient's age to complete this topic IPV Vaccines Aged Out No longer eligi ble based on patient's age to complete this topic MMR Vaccines Aged Out No longer eligi ble based on patient's age to complete this topic Meningococcal ACWY Vaccine Aged Out N o longer eligible based on patient's age to complete this topic Meningococcal B Vaccine Aged Out No l onger eligible based on patient's age to complete this topic RSV Immunization Patients Un emiliano 20 months Aged Out No longer eligible b ased on patient's age to complete this topic Varicella Vaccines Aged Out No longer eligible based on patient's age to complete this topic Procedures Procedure Name Priority Date/Time Associated Diagnosis Comments EXTERNAL COLONOSCOPY REPORT Routine 01/27/2025 10:24 AM EDT from Last 3 Months Results * External Colonoscopy Report (01/27/2025 10:24 AM EDT) Anatomical Region Laterality Modality Endoscopy us Historical Provider GI~PROCEDURE ORDERABLES F inal Result from Last 3 Months Advance Directives Documents on File Type Date Recorded Patient Gas Singer Expl anation Health Care Decision (hx) 01/10/2022 GIOVANNA ROBERTS DIRECTIVE Care Teams Forensic Document Examiner Relationship Specialty Start Date End Date Payal Marroquin MD PCP - General 08/28/1998
[2025-03-14 12:55] LABS: MANUAL DIFF FLAG NO
[2025-03-14 13:04] LABS: Hematocrit 44.1 % (37.0-47.0); Hemoglobin 14.7 g/dl (12.0-16.0); Imm Gran Abs Auto 0.04 X10*3/uL (0.00-0.03); Imm Gran Pct Auto 0.5 % (0.0-0.4); Lymphocytes Absolute Auto 1.2 X10*3/uL (1.2-4.9); Mean Corpuscular HGB Conc 33.3 g/dl (31.0-35.0); Mean Corpuscular Hemoglobin 32.0 pg (27.0-33.0); Mean Corpuscular Volume 95.9 fL (80.0-98.0); NRBC Abs Auto 0.000 X10*3/uL (0.0-0.012); NRBC Pct Auto 0.0 /100WBC (0.0-0.2); Platelet Count 274 X10*3/uL (160-400); Red Blood Count 4.60 X10*6/uL (4.20-5.50); White Blood Count 8.4 X10*3/uL (4.8-10.8)
[2025-03-14 13:33] LABS: Alanine Aminotransferase 17 U/L (0-31); Albumin Level 4.4 g/dL (3.5-5.0); Alkaline Phosphatase 157 U/L (39-117); Anion Gap 13 (12-20); Aspartate Amino Transferase 31 U/L (5-31); Blood Urea Nitrogen 9 mg/dL (9-16); Calcium 9.9 mg/dL (8.4-10.2); Carbon Dioxide 27 mmol/L (22-29); Chloride 101 mmol/L (96-108); Cholesterol 221 mg/dL (<200); Estimated Glomerular Filt Rate > 60; HDL Cholesterol 92 mg/dL (>40); Potassium 4.3 mmol/L (3.3-5.1); Sodium 137 mmol/L (135-145); Total Protein 8.0 g/dL (6.5-8.0); Triglycerides 62 mg/dL (<150)
== END 2025-03-14 10:00 | disposition home or self-care (01) ==
LOC: HO.HMGCLDS 09:59
PROVIDERS: PCP Internal Medicine; Visit Provider Internal Medicine
DX: I10 Essential (primary) hypertension (principal); E78.2 Mixed hyperlipidemia; E55.9 Vitamin D deficiency, unspecified; J44.9 Chronic obstructive pulmonary disease, unspecified; I48.91 Unspecified atrial fibrillation
CPT/HCPCS: 36415; 80053; 80061; 82306; 84443; 85025

== ENCOUNTER 2025-03-17 11:57 | Outpatient (AMB) | payer MEDICARE, OTHER, SELFPAY ==
[2025-03-17 12:49] VITALS: BP 116/70; PULSE 88; RESP 20; TEMP 36.6; O2SAT 94; BMI 29.7
--- NOTE | 2025-03-17 12:49 | MHC.PC.OV ---
Vital Signs 03/17/25 12:49 Height 5 ft 6 in Weight 184 lb BMI 29.7 BP 116/70 Blood Pressure Location Lt brachial Position Sitting Respiration 20 Pulse 88 Pulse Source Pulse Oximeter Temp 97.8 F Temp Source Oral Pulse Oximetry (%) 94 Oxygen Delivery Method Room Air Intake Visit Reasons: Annual PE/GIC covers PE Intake Note: Pt is here today for PE. Allergies No Known Allergies Allergy (Verified 03/17/25 12:50) Medication List - Last Reconciled 03/17/25 by Payal Marroquin MD albuterol sulfate 90 mcg/actuation 2 puffs inhalation Q6H PRN amlodipine 5 mg PO DAILY apixaban 5 mg PO BID clotrimazole-betamethasone 1-0.05 % 1 appl topical BID escitalopram oxalate 5 mg PO DAILY ketoconazole 2% 1 appl topical BID ketoconazole 2% 1 appl topical BID lovastatin 20 mg PO DAILY metoprolol succinate ER 25 mg PO DAILY nystatin 1 appl topical BID Trelegy Ellipta 100-62.5-25 mcg (gacpswkackk-tvezpzqzu-ldhwqgwl) 1 inh inhalation DAILY NS triamcinolone acetonide 0.1% 1 appl topical BID-TID vit E-urfapuv-xckn-rutin-hb196 546-64-85-40 mg (Bioflex) tabs PO Tobacco use date assessed: 03/17/25 Fall risk assessment: No Falls in past year Last assessed Fall Risk: 03/17/25 Dental Screening Dental Screen Date: 02/18/25 HPI Annual PE/GIC covers PE HPI Details Patient presents for physical PFSH Medical History (Updated 03/17/25 @ 13:36 by Payal Marroquin MD) Vitamin D deficiency Chronic bronchitis Annual physical exam Mid-back pain, acute Pulmonary embolism IBS (irritable bowel syndrome) COPD (chronic obstructive pulmonary disease) Lyme disease HTN (hypertension) Surgical History History of shoulder surgery History of left knee replacement S/P partial colectomy Family History Father Cancer Mother Myocardial infarct CVD (cardiovascular disease) Social History Housing: House Patient Tobacco Use Status: Former Tobacco user e-Cigarette/Vaping Use: Never Used service: No Current occupational status: retired Cognitive needs: No Hearing needs: No Vision needs: Yes Questionnaire Thrive Questionnaire Date Thrive assessed: 02/18/25 I am a: Patient What is your living situation today?: I have a steady place to live Within the past 12 months, did the food you bought not last and you didn't have the money to get more?: Never true Within the past 12 months, did you worry whether your food would run out before you got money to buy more?: Never true Do you have trouble paying for medicines?: No Do you have trouble getting transportation to medical appointments?: No Do you have trouble paying your heating and electricity bill?: No Do you have trouble taking care of your child, family member or friend?: No Do you have trouble with day-to-day activities such as bathing, preparing meals, shopping, managing finances, etc.?: No Are you currently unemployed and looking for a job?: No THRIVE Score: 0 CAESAR-7 AMB Questionnaire CAESAR-7 Date CAESAR - 7 assessed: 02/18/25 Source: Developed by Drs. Dany Alvarez, Bobbi Rivera, Maged Hudson and colleagues, with an educational iris from [employer]. Review of Systems Const All systems reviewed & are unremarkable except as noted in HPI and below Eyes Reports no additional complaints ENT Reports no additional complaints Card Reports no additional complaints Resp Reports no additional complaints GI Reports no additional complaints Reports no additional complaints Physical exam (Primary Care) Vital Signs: Last Vital Signs Temp 97.8 F 03/17/25 12:49 Pulse 88 03/17/25 12:49 Resp 20 03/17/25 12:49 BP 116/70 03/17/25 12:49 Pulse Ox 94 03/17/25 12:49 Oxygen Delivery Method Room Air 03/17/25 12:49 BMI result Body Mass Index 29.7 Tobacco/Smoking Status: Tobacco use Status Tobacco use date assessed 03/17/25 03/17/25 12:51 Patient Tobacco Use Status Former Tobacco user 03/17/25 12:51 e-Cigarette/Vaping Use Never Used 03/17/25 12:51 Thrive Assessment: Date of Thrive Assessment Date Thrive assessed 02/18/25 03/17/25 12:51 Const General: no acute distress HENMT Head: Yes normal to inspection Ears: TM's normal bilaterally Face and sinus: Yes normal facial exam Eyes General: appearance normal, both eyes and all related structures Neck Neck: Yes no lymphadenopathy and Yes supple Resp Effort & Inspection: normal respiratory effort Auscultation: clear to auscultation bilaterally Cardio Rhythm: regular rhythm Heart sounds: S1 normal heart sound present and S2 normal heart sound present GI Inspection: Yes normal to inspection Palpation (GI): Soft to palpation Percussion: Yes normal to percussion Auscultation: normal bowel sounds Coding Level of Care Code Est Pt Prev Care >65y(15539) Diagnoses Mixed hyperlipidemia E78.2 HTN (hypertension) I10 Vitamin D deficiency E55.9 A-fib I48.91 COPD (chronic obstructive pulmonary disease) J44.9 Pulmonary embolism I26.99 Assessment & Plan Assessment & Plan (1) Mixed hyperlipidemia: Code(s): E78.2 - Mixed hyperlipidemia Category: Medical Plan: Continue statin (2) HTN (hypertension): Code(s): I10 - Essential (primary) hypertension Category: Medical Plan: Continue current medications (3) Vitamin D deficiency: Code(s): E55.9 - Vitamin D deficiency, unspecified Category: Medical Plan: Start 2000 units of vitamin D3 (4) A-fib: Comment: On metoprolol and Eliquis Code(s): I48.91 - Unspecified atrial fibrillation Category: Medical Plan: Continue current medications (5) COPD (chronic obstructive pulmonary disease): Code(s): J44.9 - Chronic obstructive pulmonary disease, unspecified Category: Medical Plan: Continue Trelegy (6) 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 Panel Fast 6 Months E55.9 - Vitamin D deficiency, unspecified, E78.2 - Mixed hyperlipidemia, I10 - Essential (primary) hypertension, I48.91 - Unspecified atrial fibrillation Vitamin D 25-OH Total 6 Months E55.9 - Vitamin D deficiency, unspecified Complete Blood Count Auto Diff 6 Months E55.9 - Vitamin D deficiency, unspecified, E78.2 - Mixed hyperlipidemia, I10 - Essential (primary) hypertension, I48.91 - Unspecified atrial fibrillation Medications: New cholecalciferol (vitamin D3) 50 mcg PO DAILY 90 tabs 3RF Refilled amlodipine 5 mg PO DAILY 90 tabs 3RF escitalopram oxalate 5 mg PO DAILY 90 tabs 3RF Trelegy Ellipta 100-62.5-25 mcg (yfuvmsyetqc-aphgpulvi-qramtenj) 1 inh inhalation DAILY 180 ea 5RF NS metoprolol succinate ER 25 mg PO DAILY 90 tabs 3RF apixaban 5 mg PO BID 180 tabs 3RF lovastatin 20 mg PO DAILY 90 tabs 3RF E78.2 - Mixed hyperlipidemia Discontinued metoprolol succinate ER Discontinued Reason: Doctor's Order 25 mg PO DAILY 90 tabs 3RF
--- OUTSIDE RECORDS SUMMARY | 2025-03-17 12:55 | XMS_ITS | Clinical Summary ---
Author Organization [employer] [facility] ity Address [id number] [place] [id number] Care Team Providers Care Mental Health Technician Name Role Phone Payal Marroquin MD Primary Care Provider [phone] Social History Tobacco Use Types Packs/Day Years [...] nts (1 - 1-dose 75+ series) 02/06/2020 Falls Risk Assessment 07/26/2022 Osteoporosis Screening (Bone Density Screening) 07/26/2022 Social Influencers of Health Screening 07/26/2022 COVID-19 Vaccine (1 - 2023-2 5 season) 2024 Depression Screening 08/28/2024 Influenza Vaccine (#1) 2025 HIB Vaccines Aged [...] Documents on File Type Date Recorded Patient Public Administration Teacher Expl anation Health Care Decision (hx) 01/10/2022 GIOVANNA ROBERTS DIRECTIVE Care Teams Mental Health Technician Relationship Specialty Start Date End Date Payal Marroquin MD PCP - General 08/28/1998
--- OUTSIDE RECORDS SUMMARY | 2025-03-17 12:55 | XMS_ITS | Clinical Summary ---
Author Organization [facility] Address [address] [place] [address] Care Team Providers Care Product Analyst Name Role Phone Jas Breaux MD Primary Care Provider [phone] Allergies Active Allergy Reactions Criticality Noted Date [...] PO Take by mouth. 0 Active Acetylcysteine (S-TVXAQN-O-CYSTEINE PO) Take 700 mg by mouth. 0 [...] age to complete this topic Care Teams Product Analyst Relationship Specialty Start Date End Date Jas Breaux MD [address] [place] [address] PCP - General Internal Medicine 04/12/18
== END 2025-03-17 13:32 | disposition home or self-care (01) ==
LOC: HO.HMCC 11:58
PROVIDERS: PCP Internal Medicine; Visit Provider Internal Medicine
DX: Z00.00 Encounter for general adult medical examination without abnormal findings (principal); I48.91 Unspecified atrial fibrillation; J44.9 Chronic obstructive pulmonary disease, unspecified; I26.99 Other pulmonary embolism without acute cor pulmonale; E78.2 Mixed hyperlipidemia; I10 Essential (primary) hypertension; E55.9 Vitamin D deficiency, unspecified

== ENCOUNTER → 2025-03-17 11:57 | Outpatient (BNVA) | payer MEDICARE, OTHER, SELFPAY | PROVIDERS: PCP Internal Medicine; Visit Provider Internal Medicine | DX: Z00.00 Encounter for general adult medical examination without abnormal findings (principal); E78.2 Mixed hyperlipidemia; E55.9 Vitamin D deficiency, unspecified; I10 Essential (primary) hypertension; I48.91 Unspecified atrial fibrillation; J44.9 Chronic obstructive pulmonary disease, unspecified; I26.99 Other pulmonary embolism without acute cor pulmonale | CPT/HCPCS: 99397 ==